=== PATIENT | female | born 1975 | race Caucasian/White ===

== ENCOUNTER → 2020-10-09 14:36 | Outpatient (BNVA) | payer MEDICAID, SELFPAY | PROVIDERS: PCP Internal Medicine; Visit Provider Surgery Vascular Surgery | DX: I83.12 Varicose veins of left lower extremity with inflammation (principal) | CPT/HCPCS: 99202 ==

== ENCOUNTER 2020-10-14 08:08 | Outpatient (REF) | payer MEDICAID, SELFPAY ==
--- NOTE | 2020-10-14 08:12 | US_ITS ---
EXAMINATION: RIGHT and LEFT LOWER EXTREMITY VENOUS ULTRASOUND (Reflux Exam) CLINICAL INDICATION: leg pain and varicose veins. COMPARISON: None. TECHNIQUE: Color flow triplex imaging and compression Doppler was performed to evaluate both the deep and the superficial systems bilaterally. To evaluate the superficial system, the examination was performed in the upright position. Color-flow Doppler ultrasound and compression ultrasound were utilized. In addition, maneuvers were utilized to demonstrate reflux. FINDINGS: 1. DEEP VENOUS ULTRASOUND OF THE RIGHT LOWER EXTREMITY: Respiratory variation, normal compression and augmented flow are noted in the right common femoral vein as well as the right popliteal vein and there is no evidence of deep venous thrombosis at these locations. There is no evidence of reflux in the deep system in either the common femoral vein or the popliteal vein. There is no evidence of a Godoy's cyst. 2. SUPERFICIAL ULTRASOUND WITH DOPPLER OF RIGHT LOWER EXTREMITY: The right great saphenous vein at the saphenofemoral junction measures 9 mm, at the mid thigh 4 mm, xbzqn-wyh-vltq 4 mm, eywlo-wmw-bqft 4 mm, at mid calf 3 mm and at the ankle measures 3 mm. There is a 1.5 second reflux in the greater saphenous vein at the mid thigh. The right small saphenous vein measures 3 mm and shows no reflux. There is a lateral accessory greater saphenous vein that measures 4 mm and does not demonstrate reflux. There are perforators in the calf that measure 2 to 3 mm and do not demonstrate reflux. There is a varicosity in the calf that measures 3 mm and does not demonstrate reflux. 3. DEEP VENOUS ULTRASOUND OF THE LEFT LOWER EXTREMITY: Respiratory variation, normal compression and augmented flow are noted in the left common femoral vein as well as the left popliteal vein and there is no evidence of deep venous thrombosis at these locations. There is no evidence of reflux in the deep system in either the common femoral vein or the popliteal vein. . There is no evidence of a Godoy's cyst. 4. SUPERFICIAL ULTRASOUND WITH DOPPLER OF LEFT LOWER EXTREMITY: Left great saphenous vein at the saphenofemoral junction measures 8 mm, at the mid thigh 4 mm, ubbke-rkh-lhhv 4 mm, yoznh-yiw-inwu 3 mm, at mid calf 3 mm and at the ankle measures 3 mm. There is 2.2 seconds reflux in the greater saphenous vein at the mid calf The left small saphenous vein measures 3-5 mm and shows no reflux. There is an accessory lateral greater saphenous vein that measures 3 mm and does not demonstrate reflux. There is a varicosity in the thigh that measures 3 mm and does not demonstrate reflux. US/US venous duplex LE BI IMPRESSION: 1. No evidence of reflux or thrombus in the common femoral veins or popliteal veins bilaterally. 2. Bilateral greater saphenous vein reflux measuring 1.5 seconds on the right at the mid thigh and 2.2 seconds on the left at the mid calf.
== END 2020-10-14 08:09 | disposition home or self-care (01) ==
LOC: HO.US 08:08
PROVIDERS: Visit Provider Surgery Vascular Surgery
DX: I83.12 Varicose veins of left lower extremity with inflammation (principal); I83.893 Varicose veins of bilateral lower extremities with other complications
CPT/HCPCS: 93970

== ENCOUNTER 2020-11-17 08:05 | Outpatient (REF) | payer MEDICAID, SELFPAY ==
[2020-11-17 11:06] LABS: HCG Quantitative < 2 mIU/mL; Thyroid Stimulating Hormone 1.28 uIU/mL (0.32-4.0)
[2020-11-18 09:16] LABS: BV Int Neg Control Negative (Negative); BV Int Pos Control Positive (Positive)
[2020-11-18 15:32] LABS: C. trachomatis RNA TMA NOT DETECTED (NOT DETECTED); N. gonorrhoeae RNA TMA NOT DETECTED (NOT DETECTED)
[2020-11-20 05:52] LABS: HPV 16 RNA NOT DETECTED (NOT DETECTED); HPV mRNA E6/E7 rflx Detected (Not Detected)
== END 2020-11-17 08:06 | disposition home or self-care (01) ==
LOC: HO.LAB 08:05
PROVIDERS: PCP Internal Medicine; Visit Provider Obstetrics & Gynecology
DX: R31.29 Other microscopic hematuria (principal); N83.299 Other ovarian cyst, unspecified side; N92.1 Excessive and frequent menstruation with irregular cycle; N84.1 Polyp of cervix uteri; N76.0 Acute vaginitis; B96.89 Other specified bacterial agents as the cause of diseases classified elsewhere; F17.210 Nicotine dependence, cigarettes, uncomplicated
CPT/HCPCS: 36415; 81002; 84443; 84702; 87086; 87480; 87491; 87510; 87591; 87624; 87625; 87660; 88141; 88142; 99202

== ENCOUNTER 2020-11-18 10:21 | Outpatient (REF) | payer MEDICAID, SELFPAY ==
--- NOTE | ~2020-11-18 | MM_ITS ---
EXAMINATION: MM SCREENING DIGITAL BREAST TOMOSYNTHESIS, BILATERAL CLINICAL INFORMATION: Screening. Asymptomatic. Prior remote mammography performed 12 years ago at unknown facility in [place]. The lifetime risk of breast cancer based on the Tyrer-Cuzick Model is 8%. COMPARISON: None (current study represents new baseline exam). TECHNIQUE: Digital breast tomosynthesis is performed in both the craniocaudal and mediolateral oblique views along with computer-aided detection (CAD). Synthesized 2D images are generated from the tomosynthesis. Additional exaggerated right CC view is provided. FINDINGS: The breasts are heterogeneously dense, which may obscure small masses (ACR BI-RADS breast composition Category c). The right breast has an oval mass with smooth margins posterior upper outer quadrant measuring approximately 1.7 x 1.2 cm. Patient will be recalled for ultrasound to further characterize. The remainder the breasts show no significant mass or architectural abnormality. There are no abnormal calcifications. The axilla and skin contours are unremarkable. MM/MM tomosynthesis screening BI IMPRESSION: 1. Right: Oval mass posterior upper outer quadrant 1.7 x 1.2 cm. 2. Left: No mammographic evidence of malignancy. ASSESSMENT: BI-RADS 0: Incomplete - Need Additional Imaging Evaluation RECOMMENDATION: 1. Targeted right breast ultrasound. 2. Radiology department staff will contact the patient for additional imaging. This patient's information was entered into a reminder system with a target due date for their next mammogram.
== END 2020-11-18 10:22 | disposition home or self-care (01) ==
LOC: HO.MAMMO 10:21
PROVIDERS: PCP Internal Medicine; Visit Provider Internal Medicine
DX: Z12.31 Encounter for screening mammogram for malignant neoplasm of breast (principal)
CPT/HCPCS: 77063; 77067

== ENCOUNTER 2020-11-24 15:27 | Outpatient (REF) | payer MEDICAID, SELFPAY ==
--- NOTE | ~2020-11-24 | US_ITS ---
EXAMINATION: PELVIC ULTRASOUND CLINICAL INFORMATION: Excessive and frequent menses COMPARISON: None TECHNIQUE: Transabdominal and transvaginal pelvic ultrasound was performed. Transvaginal exam was performed for better visualization of the uterus and ovaries. FINDINGS: The uterus is anteverted and measures 13 x 4.4 x 5.6 cm in dimension. There is a 1.3 x 1.1 x 1.6 cm hypoechoic lesion in the left uterine fundus suggestive of a fibroid. No other focal uterine lesion is seen. Endometrial thickness is normal measuring 0.5 cm. There are multiple nabothian cysts in the cervix. The right ovary is enlarged and measures 3.3 x 3.1 x 3.6 cm. There is a 3 x 2.8 x 2.6 cm complex right ovarian cyst with septations and internal echoes. The left ovary is normal-appearing and measures 3 x 1.7 x 3.3 cm. There is no fluid in the pelvis. US/US pelvic complete IMPRESSION: Small left fundal uterine fibroid. 3 x 2.8 x 2.6 cm complex right ovarian cyst. Follow-up pelvic ultrasound in 10-12 weeks following several menstrual cycles should be considered.
--- NOTE | ~2020-11-24 | US_ITS ---
EXAMINATION: PELVIC ULTRASOUND CLINICAL INFORMATION: Excessive and frequent menses COMPARISON: None TECHNIQUE: Transabdominal and transvaginal pelvic ultrasound was performed. Transvaginal exam was performed for better visualization of the uterus and ovaries. FINDINGS: The uterus is anteverted and measures 13 x 4.4 x 5.6 cm in dimension. There is a 1.3 x 1.1 x 1.6 cm hypoechoic lesion in the left uterine fundus suggestive of a fibroid. No other focal uterine lesion is seen. Endometrial thickness is normal measuring 0.5 cm. There are multiple nabothian cysts in the cervix. The right ovary is enlarged and measures 3.3 x 3.1 x 3.6 cm. There is a 3 x 2.8 x 2.6 cm complex right ovarian cyst with septations and internal echoes. The left ovary is normal-appearing and measures 3 x 1.7 x 3.3 cm. There is no fluid in the pelvis. US/US transvaginal IMPRESSION: Small left fundal uterine fibroid. 3 x 2.8 x 2.6 cm complex right ovarian cyst. Follow-up pelvic ultrasound in 10-12 weeks following several menstrual cycles should be considered.
== END 2020-11-24 15:28 | disposition home or self-care (01) ==
LOC: HO.HMGCX 15:27
PROVIDERS: PCP Internal Medicine; Visit Provider Obstetrics & Gynecology
DX: N92.1 Excessive and frequent menstruation with irregular cycle (principal)
CPT/HCPCS: 76830; 76856

== ENCOUNTER → 2020-11-27 15:05 | Outpatient (BNVA) | payer MEDICAID, SELFPAY | PROVIDERS: PCP Internal Medicine; Visit Provider Surgery Vascular Surgery | DX: I83.12 Varicose veins of left lower extremity with inflammation (principal); F17.200 Nicotine dependence, unspecified, uncomplicated; Z71.6 Tobacco abuse counseling | CPT/HCPCS: 99212 ==

== ENCOUNTER 2020-12-01 14:04 | Outpatient (REF) | payer MEDICAID, SELFPAY ==
--- NOTE | ~2020-12-01 | US_ITS ---
EXAMINATION: US DIAGNOSTIC ULTRASOUND BREAST, RIGHT CLINICAL INFORMATION: Recall from screening for oval mass posterior upper outer right breast. Remote prior outside mammography from [place] approximately 12 years ago at unknown facility and unavailable. COMPARISON: Mammography 11/18/2020, new baseline. TECHNIQUE: Ultrasound right breast is targeted to the upper outer quadrant. Grayscale imaging and color Doppler are performed without and with months. FINDINGS: There is a solid macrolobulated mass with smooth margins posterior upper outer right breast 10:00 position 10 cm from nipple measuring 1.9 x 1.6 x 1.1 cm. This corresponds to finding on mammography. No other cystic or solid mass in the targeted area. Results are discussed with the patient at time of visit, using an educational sign language interpreter. The finding most likely represents a fibroadenoma. Management options discussed with patient. Patient does not recall any finding right breast on remote prior outside mammography. Ultrasound-guided core biopsy is recommended to confirm fibroadenoma. US/US breast RT limited IMPRESSION: Solid mass posterior upper outer right breast 1.9 cm, likely fibroadenoma. ASSESSMENT: BI-RADS 4A: Low suspicion for malignancy RECOMMENDATION: Ultrasound-guided core biopsy right breast. This patient's information was entered into a reminder system with a target due date for their next mammogram.
[2020-12-02 06:47] LABS: CA-125 8 U/mL (<35)
== END 2020-12-01 14:05 | disposition home or self-care (01) ==
LOC: HO.MAMMO 14:04
PROVIDERS: PCP Internal Medicine; Visit Provider Obstetrics & Gynecology
DX: N84.1 Polyp of cervix uteri (principal); N92.1 Excessive and frequent menstruation with irregular cycle; N83.292 Other ovarian cyst, left side; N02.9 Recurrent and persistent hematuria with unspecified morphologic changes; R92.8 Other abnormal and inconclusive findings on diagnostic imaging of breast; F17.210 Nicotine dependence, cigarettes, uncomplicated
CPT/HCPCS: 36415; 76642; 81003; 86304; 99212

== ENCOUNTER → 2020-12-03 08:33 | Outpatient (BNVA) | payer MEDICAID, SELFPAY | PROVIDERS: Visit Provider Surgery | DX: N63.11 Unspecified lump in the right breast, upper outer quadrant (principal); E66.01 Morbid (severe) obesity due to excess calories | CPT/HCPCS: 99202 ==

== ENCOUNTER 2020-12-04 08:10 | Outpatient (REF) | payer MEDICAID, SELFPAY ==
--- NOTE | ~2020-12-04 | US_ITS ---
PROCEDURE: US GUIDED BREAST BIOPSY, RIGHT CLINICAL INFORMATION: Indeterminate solid mass 10 o'clock position, 10 cm from the nipple COMPARISON: 12/01/2020 and studies dating back to 11/18/2020 PROCEDURAL DETAILS: The details of the procedure, as well as the risks, benefits, and alternatives to the procedure were explained to the patient in detail and all of her questions were answered, after which written informed consent was obtained. Site and side were confirmed. Prior to the procedure, sonography revealed a well-circumscribed hypoechoic solid mass 10 o'clock position, 10 cm from nipple. A time-out was performed, the lesion intended for biopsy was targeted, and the skin of the right breast was then prepped and draped in the usual sterile fashion. Using sonographic guidance, sterile technique, and 1% lidocaine without epinephrine for local anesthesia, multiple automated core biopsies were obtained through the targeted area with a 14-gauge spring loaded Achieve core biopsy device. There was real-time confirmation of appropriate needle passage. Sampling was documented. At the completion of tissue sampling, a single butterfly-shaped metallic clip was deposited at the biopsy site. There was no evidence of immediate complication. SPECIMEN: An appropriate sample was obtained. DIGITAL POST-PROCEDURE MAMMOGRAPHY: Breast density: The tissue is heterogeneously dense which may obscure small masses. BI-RADS version 5, category C. There are no new mammographic findings demonstrated. The postprocedure 2-view direct digital mammogram reveals satisfactory positioning of the biopsy clip. The patient tolerated the procedure well and, after assuring adequate hemostasis, was discharged in good condition after reviewing postbiopsy breast care instructions. Final pathology results are pending. US/US breast ndl core biopsy RT IMPRESSION: 1. No immediate complication from ultrasound-guided percutaneous biopsy right breast. 2. Ultrasound was used to localize and guide marker clip placement. 3. The 2-view direct digital postprocedure mammogram reveals satisfactory positioning of the biopsy clip. 4. Final pathology results are pending. A separate report with final recommendations will be issued once these results are made available.
--- NOTE | ~2020-12-04 | MM_ITS ---
EXAMINATION: MM DIAGNOSTIC DIGITAL MAMMOGRAPHY, RIGHT CLINICAL INFORMATION: Post ultrasound-guided core biopsy COMPARISON: Mammography: December 01, 2020 and studies dating back to November 18, 2020 TECHNIQUE: Digital mammography is performed in craniocaudal, exaggerated craniocaudal, 90 degree mediolateral, and mediolateral oblique views. FINDINGS: DIGITAL POST-PROCEDURE MAMMOGRAPHY: Breast density: The tissue is heterogeneously dense which may obscure small masses. BI-RADS version 5, category C. There are no new mammographic findings demonstrated. The postprocedure 2-view direct digital mammogram reveals satisfactory positioning of the biopsy clip. The patient tolerated the procedure well and, after assuring adequate hemostasis, was discharged in good condition after reviewing postbiopsy breast care instructions. Final pathology results are pending. MM/MM diagnostic mammo unilat RT IMPRESSION: 1. No immediate complication from ultrasound-guided percutaneous biopsy right breast. 2. Ultrasound was used to localize and guide marker clip placement. 3. The 2-view direct digital postprocedure mammogram reveals satisfactory positioning of the biopsy clip. 4. Final pathology results are pending. A separate report with final recommendations will be issued once these results are made available.
== END 2020-12-04 08:11 | disposition home or self-care (01) ==
LOC: HO.MAMMO 08:10
PROVIDERS: Visit Provider Surgery
DX: N63.11 Unspecified lump in the right breast, upper outer quadrant (principal)
CPT/HCPCS: 19083; 77065; 88305; 88341; 88342

== ENCOUNTER → 2020-12-15 14:35 | Outpatient (BNVA) | payer MEDICAID, SELFPAY | PROVIDERS: PCP Internal Medicine; Visit Provider Surgery | CPT/HCPCS: 99212 ==

== ENCOUNTER 2020-12-18 14:04 | Outpatient (REF) | payer MEDICAID, SELFPAY ==
--- NOTE | ~2020-12-18 | CT_ITS ---
EXAMINATION: CT ABDOMEN AND PELVIS WITHOUT AND WITH CONTRAST CLINICAL INFORMATION: Microscopic hematuria. COMPARISON: None. TECHNIQUE: Noncontrast CT of the abdomen and pelvis is performed followed by split bolus contrast-enhanced images using 85 mL Omnipaque 350 contrast.? Postcontrast imaging is performed during the combined nephrogram and excretion phase. Sagittal and coronal reformatted images were obtained on the technologist's workstation for both the precontrast and postcontrast phases. This CT examination was performed using dose optimization techniques as appropriate, variously including the following: *Automated exposure control *Adjustment of mA and/or kV according to patient size (this includes techniques or standardized protocols for targeted exams where dose is matched to indication/reason for exam; i.e. extremities or head) *Use of iterative reconstruction technique DLP: 1232 mGy-cm FINDINGS: LUNG BASES: The lung bases are clear. The heart size is normal. LIVER, GALLBLADDER, AND BILIARY TREE: The liver is normal in size, shape, and attenuation. There is a 1 cm hypodensity in the right hepatic lobe image 29/8 probable cyst. No additional lesion seen. No intrahepatic ductal dilatation noted. The gallbladder is unremarkable with no evidence of radiopaque gallstones, gallbladder wall thickening, or obvious pericholecystic inflammatory changes. PANCREAS: Unremarkable. SPLEEN: Unremarkable. ADRENAL GLANDS: Unremarkable. KIDNEYS AND URETERS: There are no radiopaque renal calculi seen. Postcontrast both kidney nephrograms are symmetrical, normal size and shape. No focal lesion or enhancing solid mass seen. Right kidney measures 11.70 cm in length and left kidney measures 11.07 cm in length. There is bilateral contrast opacified pelvicalyceal system which appears normal. No hydroureteronephrosis seen. There is good opacification of both ureters which are normal caliber. BLADDER: Unremarkable. GASTROINTESTINAL TRACT: There is scattered stool seen throughout the colon without any significant distention. The small bowel loops are normal caliber. ABDOMINAL WALL: No significant hernia is appreciated. LYMPH NODES: 1 cm lymph nodes are seen in the left para-aortic region. VASCULAR: Unremarkable. PELVIC VISCERA: The uterus is anteverted and appears unremarkable. No adnexal mass or free fluid seen. OSSEUS STRUCTURES: There are degenerative disc changes with vacuum disc phenomena and posterior spondylosis. CT/CT urogram IMPRESSION: No radiopaque urolith, hydroureteronephrosis or enhancing lesions. Mild constipation. Small right hepatic cyst.
== END 2020-12-18 14:05 | disposition home or self-care (01) ==
LOC: HO.CT 14:04
PROVIDERS: PCP Internal Medicine; Visit Provider Obstetrics & Gynecology
DX: R31.29 Other microscopic hematuria (principal)
CPT/HCPCS: 74178; Q9967

== ENCOUNTER → 2020-12-30 15:20 | Outpatient (BNVA) | payer MEDICAID, SELFPAY | PROVIDERS: PCP Internal Medicine; Visit Provider Obstetrics & Gynecology | DX: N92.1 Excessive and frequent menstruation with irregular cycle (principal); N84.1 Polyp of cervix uteri | CPT/HCPCS: 99212 ==

== ENCOUNTER 2021-01-02 08:46 | Day surgery (SDC) | payer MEDICAID, SELFPAY ==
[2020-12-11 14:19] VITALS: BMI 78.5
--- NOTE | 2020-12-18 09:31 | HO.ANESPROP2 ---
HPI - Anesthesia Eval Consult details Narrative: 45yo F for D&C Diagnostic Hysteroscopy PMFSH Active Problems Active Problems: All Active Problems (Updated 12/15/20 @ 14:38 by Messi Jones MD) Fibroadenoma (Acute) Morbid obesity (Acute) Breast mass, right (Acute) HPV in female (Acute) Abnormal mammogram (Acute) Bacterial vaginosis (Acute) Endocervical polyp (Acute) Menometrorrhagia (Acute Unknown) Complex ovarian cyst (Acute) Microscopic hematuria (Acute) Varicose veins of left lower extremity with inflammation (Acute) Past Medical History Medical History (Updated 12/15/20 @ 14:38 by Messi Jones MD) Breast mass, right Fibroadenoma Morbid obesity Surgical History Surgical History History of Tubal ligation status Social History Social History Smoking Status: Current every day smoker Tobacco Type: Cigarette Meds Allergies Allergy/AdvReac Type Severity Reaction Status Date / Time No Known Allergies Allergy Verified 12/15/20 14:33 Exam Exam Date and Time: December 18, 2020 0931 Height,Weight and Vital Signs: Height 5 ft 3 in Weight 201 kg Assessment and Plan Assessment Anesthesia Assessment: Chart Reviewed
[2020-12-29 11:45] VITALS: BMI 35.6
[2020-12-29 12:58] VITALS: BMI 35.6
--- NOTE | 2021-01-01 08:52 | HO.ANESPROP2 ---
Documented by User: Vanita Jennings 01/01/21 08:52 HPI - Anesthesia Eval Consult details Narrative: 45yo F for D&C Hysteroscopy, Poss Polypectomy, Poss Myomectomy PMFSH Active Problems Active Problems: All Active Problems (Updated 12/29/20 @ 13:02 by Kaylynn Lorenzo) Varicose veins of left lower extremity with inflammation (Acute) Microscopic hematuria (Acute) Complex ovarian cyst (Acute) Menometrorrhagia (Acute Unknown) Endocervical polyp (Acute) Bacterial vaginosis (Acute) Abnormal mammogram (Acute) HPV in female (Acute) Fibroadenoma (Acute) Morbid obesity (Acute) Breast mass, right (Acute) Past Medical History Medical History Anxiety and depression Breast mass, right Fibroadenoma Morbid obesity Surgical History Surgical History History of Social History Social History Are you a primary childcare center administrator to a significant other at home: No Do you presently have visiting nurse or other home services: No Smoking Status: Current every day smoker Tobacco Type: Cigarette Cigarettes Per Day: 10 Use of substances other than those prescribed or required for medical reasons: No Advance Directives: No Advance Directives Information Provided: No Advance Directives on File: No Recently lost weight without trying: No Meds Allergies Allergy/AdvReac Type Severity Reaction Status Date / Time No Known Allergies Allergy Verified 12/30/20 15:27 Home Medications Medication Instructions Recorded Confirmed Last Taken Type No Known Home Meds 12/30/20 12/30/20 Unknown History Exam Exam Date and Time: January 01, 2021 0852 Height,Weight and Vital Signs: Height 5 ft 3 in Weight 91.172 kg Assessment and Plan Assessment Anesthesia Assessment: Chart Reviewed Documented by User: Evonne Knott 01/02/21 08:49 PMFSH Past Medical History Medical History Anxiety and depression Breast mass, right Fibroadenoma Morbid obesity Surgical History Surgical History History of Social History Social History Are you a primary childcare center administrator to a significant other at home: No Do you presently have visiting nurse or other home services: No Smoking Status: Current every day smoker Tobacco Type: Cigarette Cigarettes Per Day: 10 Use of substances other than those prescribed or required for medical reasons: No Advance Directives: No Advance Directives Information Provided: No Advance Directives on File: No Recently lost weight without trying: No Meds Allergies Allergy/AdvReac Type Severity Reaction Status Date / Time No Known Allergies Allergy Verified 12/30/20 15:27 Home Medications Medication Instructions Recorded Confirmed Last Taken Type No Known Home Meds 12/30/20 12/30/20 Unknown History Exam Airway Mallampati Class: II TM Dist: >3cm Neck ROM: Full Assessment and Plan Assessment Anesthesia Assessment: Anesthesia Plan Discussed and Chart Reviewed Final Anesthetic Review NPO: Yes ASA Class: II Final Preanesthetic Review: No Changes in Pt Med Stat, Meds/Allgs Chart Reviewed, Consent Obtained/Reviewed and Anes Risks/Benef Reviewed Patient Risk: Low Procedure Risk: Low Assessment/Block/Sedation in SS: Assess/Block/Sedation-SS Anesthetic Plan Anesthetic Plan: MAC: Disposition: Standard PACU
--- NOTE | 2021-01-02 06:15 | PC.NURSE ---
pt called at 615 sts she was cancelled by office
[2021-01-02 08:53] VITALS: RESP 18; TEMP 36.4
[2021-01-02 08:59] VITALS: BP 106/77; PULSE 74; RESP 18; TEMP 36.4; O2SAT 98
[2021-01-02 09:10] LABS: UPreg QC Valid YES; Urine Pregnancy NEGATIVE (NEGATIVE)
[2021-01-02] MEDS: Lactated Ringers 1,000 ML 100 ML IVCONT (09:11)
--- NOTE | 2021-01-02 09:25 | PC.NURSE ---
no meds taken today
--- NOTE | 2021-01-02 10:21 | MHC.SHP ---
Pre-Procedural Eval Section A The patient is an INPATIENT: No Changes since office visit: No Cold of Flu in the past 2 weeks, No New Medical Problems, No Changes in Medication and No Patient answered all questions The History & Physical has been completed within 30 days and I have reviewed it.: Yes Section B Chief Complaint: Endocervical polyp Allergies: Allergies Allergy/AdvReac Type Severity Reaction Status Date / Time No Known Allergies Allergy Verified 12/30/20 15:27 Plan Diagnosis/Plan: Unchanged I have reviewed the history and physical and performed a pertinent physical examination on my patient. No changes have occurred unless specified.
--- NOTE | 2021-01-02 11:00 | PM.OP ---
Brief Operative Note Date of Service: 01/02/21 Pre-op diagnosis: Abnormal endometriumby ultrasound Post-op diagnosis: other (Normal endo cervical and endometrial cavity) Procedure: Hysteroscopy D&C, Polypectomy Surgeon: Kyle Aguirre MD Anesthesia: MAC Estimated blood loss (mL): 0 Pathology: other (Endometrial Scrapping. Polyp) Condition: stable Disposition: PACU
--- NOTE | 2021-01-02 11:01 | P.OP_ITS ---
Operative Note Operative Note Date of Service: 01/02/21 Narrative: Preop Diagnosis: Abnormal endometrium by ultrasound Operation: Diagnostic Hysteroscopy, Dilataion & Curettage Post Op Diagnosis: normal endometrial and endocervical cavity no evidence of pathology QBL: Minimal Anesthesia: MAC Surgeon: Kyle Aguirre MD Manufacturing Engineering Director: None Complication: None Pathology: Endometrial Scrapings Procedure: The patient was put in the dorsal lithotomy position, scrubbed, and draped in the usual manner. A sterile speculum was inserted in the patient's vagina. The anterior lip of the cervix was grasped with a single tooth tenaculum. The cervix was dilated up to 5 mm, then the scope was inserted in the patient's uterus. Inspection revealed normal endocervical & endometrial cavity with no evidence of pathology. The scope was taken out of the uterine cavity , then sharp curetting was carried on with no complications. At the end of the procedure, all instruments were taken out of the patient uterine and vaginal cavity. The single tooth tenaculum was removed and homeostasis was assured using pressure. The patient tolerated the procedure well and was transferred to the PACU in a stable condition.
[2021-01-02 11:04] VITALS: BP 115/52; PULSE 69; RESP 16; TEMP 36.1; O2SAT 92
[2021-01-02 11:19] VITALS: BP 107/64; PULSE 65; RESP 18; O2SAT 95
[2021-01-02 11:34] VITALS: BP 129/72; PULSE 70; RESP 18; O2SAT 99
[2021-01-02] MEDS: Acetaminophen 325 MG TABLET 650 MG PO (11:34)
[2021-01-02] MEDS: oxyCODONE HCl Immed Release 5 MG TABLET PO (11:35)
== END 2021-01-02 12:32 ==
LOC: HO.SSS 08:47
PROVIDERS: Nurse Practitioner; PCP Internal Medicine; Visit Provider Obstetrics & Gynecology
PROC: 0UDB8ZZ Extraction of Endometrium, Via Natural or Artificial Opening Endoscopic (ICD-10-PCS; CPT 58558; principal; 2021-01-02 11:10)
DX: N84.1 Polyp of cervix uteri (principal); N83.299 Other ovarian cyst, unspecified side; N92.1 Excessive and frequent menstruation with irregular cycle; Z98.51 Tubal ligation status; F17.210 Nicotine dependence, cigarettes, uncomplicated
CPT/HCPCS: 58558; 81025; 88305; J1100; J1885; J2250; J2405; J3010

== ENCOUNTER → 2021-01-15 15:15 | Outpatient (BNVA) | payer MEDICAID, SELFPAY | PROVIDERS: PCP Internal Medicine; Visit Provider Obstetrics & Gynecology ==

== ENCOUNTER 2021-12-03 14:37 | Outpatient (REF) | payer MEDICAID, SELFPAY ==
[2021-12-06 05:26] LABS: HPV mRNA E6/E7 rflx Not Detected (Not Detected)
== END 2021-12-03 14:38 | disposition home or self-care (01) ==
LOC: HO.LAB 14:37
PROVIDERS: PCP Internal Medicine; Visit Provider Obstetrics & Gynecology
DX: Z01.419 Encounter for gynecological examination (general) (routine) without abnormal findings (principal); Z11.51 Encounter for screening for human papillomavirus (HPV)
CPT/HCPCS: 87624; 88142

== ENCOUNTER 2022-01-05 15:34 | Outpatient (REF) | payer MEDICAID, SELFPAY ==
--- NOTE | ~2022-01-05 | MM_ITS ---
EXAMINATION: MM SCREENING DIGITAL BREAST TOMOSYNTHESIS, BILATERAL CLINICAL INFORMATION: Screening. Asymptomatic. The lifetime risk of breast cancer based on the Tyrer-Cuzick Model is 7%. COMPARISON: Mammography: 12/04/2020, 11/18/2020 (new baseline); ultrasound right breast 12/01/2020, ultrasound-guided biopsy right breast 12/04/2020 (fibroadenoma). TECHNIQUE: Digital breast tomosynthesis is performed in both the craniocaudal and mediolateral oblique views along with computer-aided detection (CAD). Synthesized 2D images are generated from the tomosynthesis. FINDINGS: The breasts are heterogeneously dense, which may obscure small masses (ACR BI-RADS breast composition Category c). Parenchymal pattern is similar to new baseline exam. There is no interval mass or architectural abnormality or abnormal calcifications. There is stable mass posterior upper outer right breast with overlying biopsy clip marker consistent with the biopsy-proven fibroadenoma. The skin contours are smooth. No significant changes. MM/MM tomosynthesis screening BI IMPRESSION: No mammographic evidence of malignancy. ASSESSMENT: BI-RADS 2: Benign RECOMMENDATION: Routine annual mammography screening. This patient's information was entered into a reminder system with a target due date for their next mammogram.
== END 2022-01-05 15:35 | disposition home or self-care (01) ==
LOC: HO.MAMMO 15:34
PROVIDERS: Visit Provider Obstetrics & Gynecology
DX: Z12.31 Encounter for screening mammogram for malignant neoplasm of breast (principal)
CPT/HCPCS: 77063; 77067

== ENCOUNTER 2023-03-14 09:02 | Outpatient (REF) | payer MEDICAID, SELFPAY ==
[2023-03-17 22:10] LABS: HPV mRNA E6/E7 rflx Not Detected (Not Detected)
== END 2023-03-14 09:03 | disposition home or self-care (01) ==
LOC: HO.LNP 09:02
PROVIDERS: PCP Internal Medicine; Visit Provider Obstetrics & Gynecology
DX: Z01.419 Encounter for gynecological examination (general) (routine) without abnormal findings (principal); Z11.51 Encounter for screening for human papillomavirus (HPV)
CPT/HCPCS: 87624; 88142

== ENCOUNTER 2023-03-14 09:32 | Outpatient (REF) | payer MEDICAID, SELFPAY ==
[2023-03-15 07:46] LABS: CT PCR NOT DETECTED (Not Detect.); NG PCR NOT DETECTED (Not Detect.)
[2023-03-15 11:18] LABS: BV Int Neg Control Negative (Negative); BV Int Pos Control Positive (Positive)
== END 2023-03-14 09:33 | disposition home or self-care (01) ==
LOC: HO.LAB 09:32
PROVIDERS: Visit Provider Obstetrics & Gynecology
DX: Z20.2 Contact with and (suspected) exposure to infections with a predominantly sexual mode of transmission (principal); N76.0 Acute vaginitis; B96.89 Other specified bacterial agents as the cause of diseases classified elsewhere
CPT/HCPCS: 0353U; 87480; 87510; 87660

== ENCOUNTER 2023-04-21 10:21 | Outpatient (REF) | payer MEDICAID, SELFPAY ==
--- NOTE | ~2023-04-21 | XR_ITS ---
EXAMINATION: XR PELVIS, HIP LEFT CLINICAL INFORMATION: Left hip pain status post fall 4 days ago. COMPARISON: CT urogram dated 12/18/2020. TECHNIQUE: AP view of the pelvis. FINDINGS: There is no acute fracture or dislocation. The joint spaces are unremarkable. Mild degenerative spurring off of the superior margin of the greater trochanter is again seen without significant change. The soft tissues are unremarkable. XR/XR pelvis 1-2V IMPRESSION: No acute fracture or other significant abnormality.
--- NOTE | ~2023-04-21 | XR_ITS ---
EXAMINATION: XR PELVIS, HIP LEFT CLINICAL INFORMATION: Left hip pain status post fall 4 days ago. COMPARISON: CT urogram dated 12/18/2020. TECHNIQUE: AP view of the pelvis. FINDINGS: There is no acute fracture or dislocation. The joint spaces are unremarkable. Mild degenerative spurring off of the superior margin of the greater trochanter is again seen without significant change. The soft tissues are unremarkable. XR/XR hip LT min 2V IMPRESSION: No acute fracture or other significant abnormality.
== END 2023-04-21 10:22 | disposition home or self-care (01) ==
LOC: HO.HHCX 10:21
PROVIDERS: Visit Provider Emergency Medicine
DX: S39.92XD Unspecified injury of lower back, subsequent encounter (principal); S79.912D Unspecified injury of left hip, subsequent encounter; X58.XXXD Exposure to other specified factors, subsequent encounter
CPT/HCPCS: 72170; 73502

== ENCOUNTER 2023-07-25 14:27 | Outpatient (REF) | payer MEDICAID, SELFPAY ==
--- NOTE | ~2023-07-25 | MM_ITS ---
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 Patient also due for bilateral screening. COMPARISON: Mammography: 01/05/2022. 11/18/2020. TECHNIQUE: Digital breast tomosynthesis is performed in both the craniocaudal and mediolateral oblique views along with computer-aided detection (CAD). Synthesized 2D images are generated from the tomosynthesis. FINDINGS: The breasts are heterogeneously dense, which may obscure small masses (ACR BI-RADS breast composition Category c). There is a stable lobular mass in the right breast axillary tail region with a peripheral biopsy clip, corresponding with the known previously biopsied fibroadenoma. Otherwise, there is no evidence of developing mass, suspicious grouped calcifications, or areas of architectural distortion in either breast. No mammographic abnormality other than the biopsied benign mass is present in the right upper outer quadrant. ULTRASOUND: CLINICAL INFORMATION: Patient complaining of breast pain upper outer quadrant right breast in the region of old benign biopsy of fibroadenoma. COMPARISON: 12/01/2020. 12/04/2020. TECHNIQUE: Targeted sonographic evaluation was performed using a high frequency linear transducer. Attention was given to the right upper outer quadrant in the region of breast pain. Selected archived documentation. FINDINGS: RIGHT BREAST: There is a mixture of fatty and fibroglandular tissue. There is a stable oval mass present measuring 1.1 x 1.1 x 0.9 cm, with a peripheral placed biopsy clip present, consistent with the known biopsied fibroadenoma. No additional masses are seen. There is no pathologic acoustic shadowing. There is no axillary adenopathy. MM/MM tomosynthesis diagnostic BI IMPRESSION: No mammographic evidence of malignancy in either breast. In the upper outer quadrant of the right breast, only the previously biopsied 1.1 cm fibroadenoma is noted. No additional cause for right upper quadrant breast pain is evident. Recommend clinical management for the complaint of breast pain. Otherwise, recommend resuming routine mammographic screening. OVERALL ASSESSMENT: Mammography: BI-RADS 2 - Benign Findings Ultrasound: BI-RADS 2 - Benign Findings RECOMMENDATION: 1. Patient should be managed based on the clinical symptomatology. 2. Otherwise, routine annual screening mammography. Results were provided to the patient at time of visit by the technologist. This patient's information was entered into a reminder system with a target due date for their next mammogram.
== END 2023-07-25 14:28 | disposition home or self-care (01) ==
LOC: HO.MAMMO 14:27
PROVIDERS: PCP Internal Medicine; Visit Provider Obstetrics & Gynecology
DX: N64.4 Mastodynia (principal)
CPT/HCPCS: 76642; 77062; 77066

== ENCOUNTER → 2023-07-25 15:00 | Outpatient (BNV) | payer MEDICAID, SELFPAY | PROVIDERS: PCP Internal Medicine; Visit Provider Radiology Diagnostic Radiology | DX: N64.4 Mastodynia (principal) | CPT/HCPCS: 76642; 77062; 77066 ==

== ENCOUNTER 2023-12-14 11:29 | Outpatient (REF) | payer MEDICAID, SELFPAY ==
[2023-12-14 13:27] LABS: MANUAL DIFF FLAG NO
[2023-12-14 13:32] LABS: Basophils Percent Auto 0.6 % (0-2); Eosinophils Absolute Auto 0.1 X10*3/uL (0.0-0.4); Hematocrit 40.6 % (37.0-47.0); Hemoglobin 13.3 g/dl (12.0-16.0); Imm Gran Abs Auto 0.01 X10*3/uL (0.00-0.03); Imm Gran Pct Auto 0.2 % (0.0-0.4); Lymphocytes Absolute Auto 2.5 X10*3/uL (1.2-4.9); Lymphocytes Percent Auto 38.1 % (20-40); Mean Corpuscular HGB Conc 32.8 g/dl (31.0-35.0); Mean Corpuscular Hemoglobin 29.6 pg (27.0-33.0); Mean Corpuscular Volume 90.2 fL (80.0-98.0); Mean Platelet Volume 11.3 fL (9.4-12.3); Monocytes Absolute Auto 0.5 X10*3/uL (0.1-1.2); Monocytes Percent Auto 7.1 % (2-11); Neutrophils Absolute Auto 3.4 x10*3/uL (2.0-8.3); Platelet Count 287 X10*3/uL (160-400); Red Cell Distribution Width 12.5 % (11.0-16.0); White Blood Count 6.5 X10*3/uL (4.8-10.8)
[2023-12-14 13:51] LABS: Alanine Aminotransferase 19 U/L (0-31); Albumin Level 4.4 g/dL (3.5-5.0); Alkaline Phosphatase 87 U/L (39-117); Anion Gap 11 (12-20); Aspartate Amino Transferase 19 U/L (5-31); Bilirubin Total 0.5 mg/dL (0.0-1.0); Blood Urea Nitrogen 9 mg/dL (9-16); C Reactive Protein 0.58 mg/dL (< or = 0.50); Calcium 9.3 mg/dL (8.4-10.2); Carbon Dioxide 29 mmol/L (22-29); Chloride 106 mmol/L (96-108); Estimated Glomerular Filt Rate > 60; Glucose Random 77 mg/dL (60-115); Potassium 4.2 mmol/L (3.3-5.1); Sodium 142 mmol/L (135-145); Total Protein 7.3 g/dL (6.5-8.0)
[2023-12-14 14:06] LABS: Erythrocyte Sedimentation Rate 13 MM/HR (0-20)
[2023-12-16 19:28] LABS: C. trachomatis RNA TMA NOT DETECTED (NOT DETECTED); Candida glabrata RNA DETECTED (NOT DETECTED); Candida species RNA NOT DETECTED (NOT DETECTED); N. gonorrhoeae RNA TMA NOT DETECTED (NOT DETECTED); Trichomonas vaginalis RNA NOT DETECTED (NOT DETECTED)
== END 2023-12-14 11:30 | disposition home or self-care (01) ==
LOC: HO.HHCL 11:29
PROVIDERS: Visit Provider Nurse Practitioner Family
DX: R10.32 Left lower quadrant pain (principal); N89.8 Other specified noninflammatory disorders of vagina
CPT/HCPCS: 36415; 80053; 81513; 85025; 85652; 86140; 87481; 87491; 87591; 87661

== ENCOUNTER 2023-12-16 13:23 | Outpatient (REF) | payer MEDICAID, SELFPAY | END 2023-12-16 13:24 | disposition home or self-care (01) | LOC: HO.HHCLNP 13:23 | PROVIDERS: Visit Provider Nurse Practitioner Family | DX: Z12.11 Encounter for screening for malignant neoplasm of colon (principal) | CPT/HCPCS: 36415 ==

== ENCOUNTER 2024-02-29 11:46 | Outpatient (REF) | payer MEDICAID, SELFPAY ==
[2024-02-29 14:59] LABS: HBsAGNum1 0.26 S/CO (0.00-0.99); HIV AB/AG Nonreactive (Nonreactive); HIV Num 1 0.05 S/CO (0.00-0.99); Hepatitis B Surface Antigen Negative (Negative); ~HepC Num1 0.06 S/CO (0.00-0.79); ~Hepatitis C Antibody Nonreactive (Nonreactive)
[2024-02-29 14:59] LABS: Syphilis Screen Reactive (Nonreactive)
[2024-03-06 11:12] LABS: RPR Quantitative Non-Reactive (Nonreactive)
[2024-03-06 11:13] LABS: T.Pallidum Particle Agg Test Reactive (Nonreactive)
== END 2024-02-29 11:47 | disposition home or self-care (01) ==
LOC: HO.HHCL 11:46
PROVIDERS: Visit Provider Obstetrics & Gynecology
DX: N76.0 Acute vaginitis (principal); B96.89 Other specified bacterial agents as the cause of diseases classified elsewhere; R10.32 Left lower quadrant pain
CPT/HCPCS: 36415; 86592; 86780; 86803; 87340; 87389

== ENCOUNTER → 2024-03-06 13:08 | Outpatient (BNVA) | payer SELFPAY | PROVIDERS: PCP Internal Medicine; Visit Provider Obstetrics & Gynecology ==

== ENCOUNTER → 2024-03-07 09:30 | Outpatient (BNVA) | payer SELFPAY | PROVIDERS: PCP Internal Medicine; Visit Provider Obstetrics & Gynecology ==

== ENCOUNTER 2024-04-06 11:18 | Outpatient (REF) | payer OTHER, SELFPAY ==
[2024-04-06 12:56] LABS: Estimated Average Glucose 108 mg/dL; Hemoglobin A1c % 5.4 % (<6.0)
[2024-04-06 13:17] LABS: Cholesterol 169 mg/dL (<200); HDL Cholesterol 57 mg/dL (>40); LDL Cholesterol Calculated 100 mg/dL (<100); Triglycerides 62 mg/dL (<150)
[2024-04-06 13:32] LABS: TSH reflex Free T4 1.89 uIU/mL (0.32-4.0)
[2024-04-06 14:43] LABS: CT PCR NOT DETECTED (Not Detect.); NG PCR NOT DETECTED (Not Detect.)
[2024-04-09 04:54] LABS: Syphilis Screen Reactive (Nonreactive)
[2024-04-09 05:19] LABS: ~HepC Num1 0.06 S/CO (0.00-0.79); ~Hepatitis C Antibody Nonreactive (Nonreactive)
[2024-04-10 01:13] LABS: RPR Rapid Plasma Reagin NON-REACTIVE (NON-REACTIVE)
[2024-04-11 07:30] LABS: HIV RNA PCR Qn Copies Not Detected Copies/mL; HIV RNA PCR Qn Log Copies Not Detected Log cps/mL
[2024-04-13 13:47] LABS: RPR Quantitative Reactive 1:1 (Nonreactive)
[2024-04-13 13:48] LABS: T.Pallidum Particle Agg Test Reactive (Nonreactive)
== END 2024-04-06 11:19 | disposition home or self-care (01) ==
LOC: HO.LAB 11:18
PROVIDERS: Absent Provider Obstetrics & Gynecology; PCP Internal Medicine; Visit Provider Internal Medicine
DX: Z00.00 Encounter for general adult medical examination without abnormal findings (principal); Z11.4 Encounter for screening for human immunodeficiency virus [HIV]; A53.9 Syphilis, unspecified
CPT/HCPCS: 36415; 80061; 83036; 84443; 86592; 86780; 86803; 87491; 87536; 87591; 87900

== ENCOUNTER 2024-04-10 10:00 | Outpatient (AMB) | payer OTHER, SELFPAY ==
--- NOTE | 2024-04-10 10:01 | MHC.OFFVIS ---
Intake Visit Reasons: labs results Allergies No Known Allergies Allergy (Verified 03/06/24 13:10) HPI Comments Details: The patient is scheduled tele health visit after troponin pallidum antibody EIA was reactive, other tests are still pending. The patient colpo of months ago had a positive troponin, pallidum antibody EIA reactive followed by negative RPR and reactive treponema pallidum particle agglutination test. History of syphilis PFSH Medical History Anxiety and depression Fibroadenoma Morbid obesity Breast mass, right HPV in female Surgical History Hx of dilation and curettage History of Social History Are you a primary care coordination manager to a significant other at home: No Do you presently have visiting nurse or other home services: No Alcohol intake: current Alcohol intake frequency: holidays/special occasions only Patient Tobacco Use Status: Current everyday Tobacco user Cigarettes Per Day: 10 Sexual orientation: Straight/Heterosexual Gender identity: Female Female Reproductive History Menstrual Age of Menarche: 7 Review of Systems Const All systems reviewed & are unremarkable except as noted in HPI and below Reports as per HPI and Reports no additional complaints GI Reports no additional complaints Reports no additional complaints Telehealth Telehealth Telehealth Platform: Telephone Location of provider rendering services: practice address Location of patient: address on file Patient Identification confirmed using: Name, : Yes Telehealth method: voice only Patient verbally consented to treatment: Yes Patient verbally consented to billing insurance company: Yes Patient informed of any privacy concerns related to visit: Yes Assessment & Plan Assessment & Plan (1) 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 All questions answered, the patient verbalized understanding. I spent a total of 20 minutes reviewing the chart, talking to the patient via phone and documenting in the medical record. 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
== END 2024-04-10 12:29 | disposition home or self-care (01) ==
LOC: HO.HWS 10:01
PROVIDERS: PCP Internal Medicine; Visit Provider Obstetrics & Gynecology
DX: A53.9 Syphilis, unspecified (principal)

== ENCOUNTER → 2024-04-10 10:00 | Outpatient (BNVA) | payer OTHER, SELFPAY | PROVIDERS: PCP Internal Medicine; Visit Provider Obstetrics & Gynecology | DX: A53.9 Syphilis, unspecified (principal) | CPT/HCPCS: 99211 ==

== ENCOUNTER 2024-10-31 15:14 | Outpatient (REF) | payer OTHER, SELFPAY ==
--- OUTSIDE RECORDS SUMMARY | 2024-10-31 16:36 | XMS_ITS | Clinical Summary ---
Author Organization [facility] Address [address] [place] [address] Care Team Providers Care Braider Tender Name Role Phone Unavailable Primary Care Provider Unavailabl e Source Comments PLEASE NOTE, if this patient is a minor, it may be UNLAWFUL to discuss sensitive information that is contained in these records (such as FAMILY PLANNING, MENTAL HEALTH or SUBSTANCE ABUSE) with the minor patient's parent or other person without the patient's specific authorization.[facility] Medications ibuprofen 600 mg tabletIndicatio ns:Tooth pain Take 1 Tab by mouth 4 (four) times daily as needed for pain 28 Tab 0 Active ibuprofen 600 mg tablet Take 1 Tab by mouth 4 (four) times daily as needed for pain 20 Tab 0 Active fluoride, sodium, (DENTAGEL) 1.1 % gelIndications: [place] in mouth once daily [place] twice daily. Expectorate after use. Do not rinse, eat or drink for 30 minutes after use. 56 g 3 0 Active Immunizations Name Administration Dates Next Due Moderna COVID-19 Vaccine, re d cap blue label, 12+ Primary Series 03/24/2021,02/24/2021 Social History Tobacco Use Types Packs/Day Years Used Date Smoking Tobacco: Never Assessed Social Connections Answer Date Recorded Social Connections and Isolation 0 02/24/2021 Financial Resource Strain Answer Date R ecorded Financial Resource Strain 0 2020 Stress Answer Date Recorded Stress 0 02/24/2021 Physical Activity Answer Date Recorded Physical Activity 0 02/24/2021 Food Insecurity Answer Date Recorded Food 0 02/24/2021 Transportation Needs Answer Date Record ed Transportation 0 02/24/2021 Housing Stability Answer Date Recorded Housing 0 02/24/2021 Safety and Environment Answer Date Polo rded Safety 0 02/24/2021 Utilities Answer Date Recorded Utilities 0 02/24/2021 Employment Answer Date Recorded Employment 0 02/24/2021 Comments Unknown Sex and Gender Information Value Date Recorded Sex Assigned at Not on file Legal Sex Female 1:03 PM PST Gender Identity Not on file Sexual Orientation Not on file Plan of Treatment Health Maintenance Due Date Last Done Comments Diabetes Screening 1973 HPV Screening 1973 Hepatitis C Screening 1973 Lipid Screening 1973 Pap + HPV 1973 Tobacco Screening 1973 HIV Screening 01/31/1988 Annual Preventive Care Visit 1991 Hypertension Screening (#1) 1991 Imm-DTaP/Tdap/Td (1 - Tdap) 01/31/1992 Imm-Hepatitis B (1 of 3 - 19 + 3-dose series) 01/31/1992 Cervical Cancer Screening 1994 Pap Smear 1994 Breast Cancer Screening (Mammogram) 2013 CT Colonography 2018 Colonoscopy 2018 Colorectal Cancer Screening 2018 FIT/gFOBT 2018 Fecal DNA 2018 Flexible Sigmoidoscopy 2018 Imm-Zoster, Recombinant (1 of 2) 2023 Alcohol and Drug Screen 09/26/2023 Depression Annual Screen 09/26/2023 Ith-GYQDC-46 ( season) 2024 021, 02/24/2021 Imm-Influenza (#1) 2024 08/20/2020 Cervical Ablation/Cold-Knife Conization Discontinued Cervical Cryotherapy Discontinued Colposcopy Discontinued Endometrial Biopsy Discontinued Excision/Leep Discontinued HPV Genotyping Discontinued Vaginal Pap Discontinued Vulvoscopy Discontinued Insurance [place] DENTAL [facility] DENT[facility] [address] [place]
--- OUTSIDE RECORDS SUMMARY | 2024-10-31 16:36 | XMS_ITS | Encounter Summary ---
Author Organization [facility] Address [address] [place] [address] Care Team Providers Care Program Review Director Name Role Phone Valentina Lopez MD Primary Care Provide r Encounter Details Date Type Department Care Team (Late st Contact Info) Description 06/20/2023 Orders Only [facility] [address] [place] [address] Provider, Misael, Social History Tobacco Use Types Packs/Day Years Used Date Smoking Tobacco: Every Day Cigarettes Passive Smoke Exposure: Current Smokeless Tobacco: Never Depression Answer Date Recorded Patient Health Questionnaire-9 Score 3 02/28/2023 Depression Answer Date Recorded Patient Health Questionnaire-2 Score 0 02/28/2023 Comments Unknown Sex and Gender Information Value Date Recorded Sex Assigned at Female 07/26/2022 10:34 AM EDT Legal Sex Female 10:34 AM EDT Gender Identity Female 07/26/2022 10:34 AM EDT Sexual Orientation Straight 07/26/2022 10 :34 AM EDT documented as of this encounter Plan of Treatment Not on file documented as of this encounter Procedures Procedure Name Priority Date/Time Associated Diagnosis Comments HM PAP/HPV Routine 12/03/2021 HM PAP/HPV Routine 11/15/2020 documented in this encounter Results * Hm Pap Smear (12/03/2021) Historical Provider HEALTH MAINTENANCE Final Result * Hm Pap Smear (11/15/2020) Historical Provider HEALTH MAINTENANCE Final Result documented in this encounter Visit Diagnoses Not on filedocumented in this encounter Additional Health Concerns Assessment Noted Time PHQ-9 Depression Total Score: 3 02/29/20 23 10:36 AM EDT documented as of this encounter Care Teams Program Review Director Relationship Specialty Start Date End Date Valentina Lopez MD [address] [place] [address] PCP - General Family Medicine 08/03/18 documented as of this encounter
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
--- OUTSIDE RECORDS SUMMARY | 2024-10-31 16:36 | XMS_ITS | Clinical Summary ---
Author Organization [facility] Address [address] [place] [address] Phone Care Team Providers Care Purification Operator Helper Name Role Phone [facility] Primary Care Provider [phone] [facility] Unavailable [phone] Reason for Visit and Chief Complaint Established Patient Plan of Treatment No Plan of Treatment Recorded Assessments Includes: Assessments from this encounter No [...] from this encounter No Physical Exam Recorded Insurance Includes: Active Insurance Policies Plan Name Member ID Group # Subscriber Relationship Effect jeferson Dates 1 - [facility] [id number] Leela Piña Self Clinical Notes Includes: Clinical Notes from this encounter No Clinical Notes Recorded
--- OUTSIDE RECORDS SUMMARY | 2024-10-31 16:36 | XMS_ITS | Clinical Summary ---
Author Organization [facility] Address [address] [place] [address] Care Team Providers Care Back Tender Fourdrinier Name Role Phone Unavailable Primary Care Provider Unavailabl e Social History Tobacco Use Types Packs/Day Years Used Date Smoking Tobacco: Never Assessed Sex and Gender Information Value Date Recorded Sex Assigned at Not on file Gender Identity Not on file Sexual Orientation Not on file Plan of Treatment Health Maintenance Due Date Last Done Comments Breast Cancer Screening 1973 DTaP,Tdap,and Td Vaccines (1 - Tdap) 01/31/1992 Hepatitis B Vaccines (1 of 3 - 19+ 3-dose series) 01/31/1992 Cervical Cancer Screening: P ap Smear 1994 Colorectal Cancer Screening: Colonoscopy 08/25/2022 Depression Screening 08/25/2022 HIV Screening 08/25/2022 Hepatitis C Screening 08/25/2022 Social Influencers of Health Screening 08/25/2022 Zoster Vaccines (1 of 2) 2023 COVID-19 Vaccine ( - 2023-2 5 season) 2024 Influenza Vaccine (#1) 2024 HIB Vaccines Aged Out No longer eligi ble based on patient's age to complete this topic HPV Vaccines Aged Out No longer eligi ble based on patient's age to complete this topic Hepatitis A Vaccines Aged Out No long er eligible based on patient's age to complete this topic IPV Vaccines Aged Out No longer eligi ble based on patient's age to complete this topic MMR Vaccines Aged Out No longer eligi ble based on patient's age to complete this topic Meningococcal ACWY Vaccine Aged Out N o longer eligible based on patient's age to complete this topic Pneumococcal Vaccine: Pediat rics (0 to 5 Years) and At-Risk Patients (6 to 64 Years) Aged Out No longer eligible b ased on patient's age to complete this topic RSV Immunization Patients Un yane 20 months Aged Out No longer eligible b ased on patient's age to complete this topic Varicella Vaccines Aged Out No longer eligible based on patient's age to complete this topic
--- OUTSIDE RECORDS SUMMARY | 2024-10-31 16:36 | XMS_ITS | Clinical Summary ---
Author Organization [employer] Address [address] [place] [address] Care Team Providers Care Switch Coupler Name Role Phone Valentina Lopez MD Primary Care Provide r Allergies No known active allergies Medications nicotine polacrilex (Commit) 4 MG lozenge Dissolve 1 lozenge (4 mg) in the mouth every 2 (two) hours if needed for smoking cessation. 100 lozenge 4 Active nicotine (Nicoderm CQ) 14 MG/24HR patch Place 1 patch on the skin 1 (one) time each day at the same time. 42 patch 4 Active nicotine (Nicoderm CQ) 7 MG/24HR patch Place 1 patch on the skin 1 (one) time each day at the same time. 14 patch 4 Active Nirmatrelvir&Rit onavir 300/100 (Paxlovid, 300/100,) 20 x 150 MG & 10 x 100MG tablet therapy pack Take 300 mg by mouth 2 times daily. Take 3 tablets 2x/day for 5 days 30 each 4 Active acetaminophen (Tylenol) 500 MG tablet Take 2 tablets (1,000 mg) by mouth every 6 (six) hours if needed for moderate pain or fever for up to 25 doses. 30 tablet 4 Active ibuprofen 400 MG tablet Take 1 tablet (400 mg) by mouth every 6 (six) hours if needed for moderate pain or fever for up to 30 doses. 30 tablet 4 Active acetaminophen (Tylenol) 500 MG tablet Take 2 tablets (1,000 mg) by mouth every 6 (six) hours if needed for moderate pain or fever for up to 25 doses. 50 tablet 4 Active ibuprofen 400 MG tablet Take 1 tablet (400 mg) by mouth every 6 (six) hours if needed for moderate pain or fever for up to 30 doses. 30 tablet 4 Active phentermine 15 MG capsuleIndicatio ns:Class 1 obesity due to excess calories without serious comorbidity with body mass index (BMI) of 34.0 to 34.9 in adult Take 1 capsule (15 mg) by mouth before breakfast. 30 capsule 4 Active famotidine (Pepcid) 20 MG tabletIndication s:Left lower quadrant pain Take 1 tablet (20 mg) by mouth 2 times daily. 60 tablet 1 4 04/11/20 25 Active Active Problems Problem Noted Date Diagnosed Date Urinary frequency 04/11/2024 Assessment & Plan (04/11/2024 10:23 AM EDT): Labs ordered patient to be contacted with results Other constipation 02/29/2024 Assessment & Plan (04/11/2024 10:23 AM EDT): Advise more water and fiber on diet Medications as prescribed Assessment & Plan (02/29/2024 2:02 PM EDT): Diet modification counseling done Medications as above GI referral Class 1 obesity without seri ous comorbidity with body mass index (BMI) of 34.0 to 34.9 in adult 02/29/2024 Assessment & Plan (02/29/2024 2:03 PM EDT): Today extensive discussion was done about life style modifications I advise healthy diet (low calorie) and cardiovascular exercise I will prescribe phentermine 15mg daily today RTC 2 weeks Chronic low back pain 02/28/2024 Obesity (BMI 35.0-39.9 without comorbidity) 11/25 Assessment & Plan (12/28/2023 5:39 PM EDT): Reviewed increasing activity Left lower quadrant pain 12/14/2023 Assessment & Plan (04/11/2024 10:22 AM EDT): Do not miss GI appointment Medications as prescribed RTC 6 weeks Assessment & Plan (02/29/2024 2:02 PM EDT): I advise patient to avoid NSAIDs, spicy and acid food, I advise to eat at the same time every day, I advise to elevate the head of the bed and take medications as prescribe Famotidine prescribed today Colace and miralax Referral to GI she needs anyway her colonoscopy Assessment & Plan (12/28/2023 5:39 PM EDT): Suspect functional constipation based on history, add fiber, Due to intermittent but ongoing llq pain, ultrasound ordered Screening for colon cancer 12/14/2023 Assessment & Plan (12/28/2023 5:40 PM EDT): IFOBT ordered, referral to GI for colonoscopy Anxiety 12/13/2023 Gastroesophageal reflux disease 04/06/2023 Bilateral carpal tunnel syndrome 04/05/2023 Assessment & Plan (04/05/2023 12:36 PM EDT): I will generate prescription for bilateral wrist braces Fall due to wet surface 04/05/2023 Assessment & Plan (04/05/2023 12:37 PM EDT): Walk in appointment will be set up for patient Encounter for preventive health examination 01/2023 Assessment & Plan (02/29/2024 2:03 PM EDT): See HPI Polyarthralgia 02/28/2023 Assessment & Plan (04/05/2023 12:36 PM EDT): Continue with acetaminophen PRN Chronic bilateral low back pain with bilateral s ciatica 02/28/2023 Vaginal discharge 02/28/2023 Assessment & Plan (12/28/2023 5:39 PM EDT): Sure swab sent Tobacco dependence 02/28/2023 Assessment & Plan (12/28/2023 5:40 PM EDT): Actively cutting down, declines further assistance today Assessment & Plan (04/05/2023 12:36 PM EDT): Patient did not like nicotine gm I will switch her t nicotine patch Encounter for screening mamm ogram for malignant neoplasm of breast 02/28/2023 Immunizations Name Administration Dates Next Due Hep B, adult 11/23/2016,02/05/2016,07/18/2015 Influenza injectable quadriv alent preservative free 08/20/2020 Influenza, IIV3, injectable 08/03/2010 MMR 07/22/2015 Td (adult), unspecified 08/31/2010 Tdap 02/28/2023 Zoster, Recombinant 02/28/2023 Family History Medical History Relation Name Comments Diabetes Mother Hypertension Mother Relation Name Status Comments Mother Social History Tobacco Use Types Packs/Day Years Used Date Smoking Tobacco: Every Day Cigarettes Passive Smoke Exposure: Current Smokeless Tobacco: Never Tobacco Cessation:Ready to Q uit: Not Asked; Counseling Given: Not Answered Depression Answer Date Recorded Patient Health Questionnaire-9 Score 3 02/28/2023 Housing Stability Answer Date Recorded What is your housing situation today? I have loreta leung 07/15/[address] you li ve. Do you have problems with any of the following? None of the above 07/15/2023 Food Insecurity Answer Date Recorded Within the past 12 months, y ou worried that your food would run out before you got money to buy more: Never True 07/15/2023 Within the past 12 months,th e food you bought just didn't last and you didn't have enough money to get more: Never True Transportation Answer Date Recorded In the past 12 months, has l ack of transportation kept you from medical appts, meetings, work or from getting things needed for daily living? No 07/15/2023 Utilities Answer Date Recorded In the past 12 months, has t he electric, gas, oil or water company threatened to shut off services in your home? No 07/15/2023 Depression Answer Date Recorded Patient Health Questionnaire-2 Score 0 02/28/2023 Comments Unknown Sex and Gender Information Value Date Recorded Sex Assigned at Female 07/26/2022 10:34 AM EDT Legal Sex Female 10:34 AM EDT Gender Identity Female 07/26/2022 10:34 AM EDT Sexual Orientation Straight 07/26/2022 10 :34 AM EDT Last Filed Vital Signs Vital Sign Reading Time Taken Comments Blood Pressure 120/60 02/29/2024 11:03 AM EDT Pulse 87 02/29/2024 11:03 AM EDT Temperature 36.4 ??C (97.6 ??F) 02/29/2024 11:03 AM E DT Respiratory Rate 12 02/29/2024 11:03 AM EDT Oxygen Saturation 98% 02/29/2024 11:03 AM EDT Inhaled Oxygen Concentration - - Weight 89.2 kg (196 lb 9.6 oz) 02/29/2024 11:03 AM EDT Height 160 cm (5' 3 ) 02/29/2024 11:03 AM EDT Body Mass Index 34.83 02/29/2024 11:03 AM EDT Plan of Treatment Health Maintenance Due Date Last Done Comments CT Colonography 1973 Colonoscopy 1973 Colorectal Cancer Screening 1973 FIT DNA/Cologuard 1973 FIT 1973 FOBT 1975 Sigmoidoscopy 1973 Pneumococcal Vaccine: Pediatrics (0 to 5 Years) and At-Risk Patients (6 to 49) Years) (1 of 2 - PCV) 1979 Alcohol/Substance Use Screening 1985 Family Planning (PISQ) 01/31/1988 Hepatitis A Vaccines (1 of 2 - Risk 2-dose series) 01/31/1992 Pneumococcal Vaccine: 50+ Years (1 of 2 - PCV) 01/31/1992 HPV/Cotest 12/03/2022 12/03/2021, 10/28, 11/17/2020 Zoster Vaccines (2 of 2) 04/25/2023 02/28/2023 Depression Screening 02/29/2024 02/28/2023, 02/29/20 23 SDOH Screening 02/29/2024 02/28/2023 Cervical Cancer Screening 03/14/2024 Pap Smear 03/14/2024 03/14/2023, 11/24, 11/15/2020 COVID-19 Vaccine ( season) 2024 09/23/2021, 03/24/2021, 02/24/2021 Influenza Vaccine (#1) 2024 08/20/2020, 2009 Mammogram 07/25/2024 07/25/2023, 06/28, 11/18/2020 Tobacco Screening 02/28/2025 02/29/2024 Lipid Panel 04/06/2029 04/06/2024, 0601/2023, 12/01/2021, Additional history exists DTaP/Tdap/Td Vaccines (2 - Td or Tdap) 02/28/2033 02/28/2023, 08/31/2010 RSV Patients and Patients Aged 60 years or older (1 - 1-dose 75+ series) 01/31/2048 Hepatitis B Vaccines Completed 11/23/2016, 02/05/2016, 07/18/2015 HIV Screening Completed 02/28/2023, 12/01/2021 Hepatitis C Screening Completed 04/06/2024 , 02/28/2023, 12/01/2021 HIB Vaccines Aged Out No longer eligi ble based on patient's age to complete this topic HPV Vaccines Aged Out No longer eligi ble based on patient's age to complete this topic IPV Vaccines Aged Out No longer eligi ble based on patient's age to complete this topic Meningococcal Vaccine Aged Out No shira johny eligible based on patient's age to complete this topic RSV under 20 months Aged Out No longe r eligible based on patient's age to complete this topic Rotavirus Vaccines Aged Out No longer eligible based on patient's age to complete this topic Procedures Procedure Name Priority Date/Time Associated Diagnosis Comments HEPATITIS C AB W/REFL TO HCV RNA, QN, PCR Routine 04/06/2024 11:37 AM EDT Encounter for preventive health examination LIPID PANEL, STANDARD Routine 04/06/2024 11:37 AM EDT Encounter for preventive health examination BI MAMMOGRAM DIAGNOSTIC TOMOSYNTHESIS BILATERAL Routine 07/25/2023 2:53 PM EDT PAP SMEAR Routine 03/14/2023 9:32 AM EDT HIV 1/2 ANTIGEN/ANTIBODY, FOURTH GENERATION W/RFL Routine 02/28/2023 11:33 AM EDT Encounter for preventive health examination ZZZ HISTORICAL HPV E6/E7 RFLX THERESA 16 18/45 Routine 12/03/2021 3:06 PM EST from Last 3 Months or Most Recently Relevant to Health Maintenance Results * Hepatitis C Antibody with Reflex to HCV, RNA, Quantitative, Real-Time PCR (04/06/2024 11:37 AM EDT) Hepatitis C Antibody Nonreactive Nonreactive [facility] Comment:Antibodies to HCV no t detected; does not exclude early acuteHCV infection. Blood Venous blood specimen / Unknown 04/06/2024 11:37 AM EDT 04/06/2024 11:37 AM EDT us Valentina Zambrano MD LAB BLOOD ORDERABLES Final Result [facility] [address] [place] [address] [phone] * (ABNORMAL) Lipid Panel, Standard (04/06/2024 11:37 AM EDT) Triglycerides 62 <150 mg/dL [facility] Comment:Desirable Triglyceri de: less than 150 mg/dLBorderline High Triglyceride 150-199 mg/dLHigh Triglyceride: 200-499 mg/dLVery High Triglyceride: greater than or equal to 5OO mg/dL Cholesterol 169 <200 mg/dL [facility] Comment:Desirable Cholestero l: less than 200 mg/dLBorderline High Cholesterol: 200-239 mg/dLHigh Cholesterol: greater than 239 mg/dL LDL Cholesterol Calculated 100(H) <100 mg/dL [facility] Comment:Desirable LDL: less than 100 mg/dLNear Optimal/Above Optimal LDL: 110- 129 mg/dLBorderline High LDL: 130-159 mg/dLHigh LDL: 160-189 mg/dLVery High LDL: greater than or equal to 190 mg/dL HDL Cholesterol 57 >40 mg/dL [facility] Comment:Desirable HDL: great er than 40 mg/dL Note: This HDL assay may give artificially low results in patients with liver disease. Blood Venous blood specimen / Unknown 04/06/2024 11:37 AM EDT 04/06/2024 11:37 AM EDT us Valentina Zambrano MD LAB BLOOD ORDERABLES Final Result [facility] [address] [place] [address] [phone] * BI Mammogram Diagnostic Tomosynthesis Bilateral (07/25/2023 2:53 PM EDT) Anatomical Region Laterality Modality Breast Bilateral Mammography 07/25/2023 2:53 PM EDT Narrative 07/25/2023 3:52 PM EDT ? [facility] [place] ? [address] ?[place] [address] ? Mammography Report ? Signed ? Patient: Leela Piña R ?MR#: [id number] ?? 9 ? : 1975 ?Acct:[id number] ? Age/Sex: 48 / F ?ADM Date: 10/30/23 ? Loc: HO.MAMMO ? Attending Dr: Kyle Aguirre MD ? Ordering Physician: Kyle Aguirre MD ?Results: 2Benign ?? Findings ? Date of Service: /30/23 ?Follow Up: 1 Year From Orig ?? inal Mammogram ? Procedure(s): MM tomosynthesis diagnostic BI ?? Accession Number(s): [id number] ? cc: Valentina Lopez MD; Kyle Aguirre MD ? EXAMINATION: ?? MM DIAGNOSTIC DIGITAL BREAST TOMOSYNTHESIS, BILATERAL ?? US BREAST LIMITED, RIGHT ? MAMMOGRAPHY: ?? CLINICAL INFORMATION: ? Patient complaining of breast pain upper outer quadrant right breast in ?? the region of old benign biopsy of fibroadenoma. Patient also due for ?? bilateral screening. ? COMPARISON: ?? Mammography: 01/05/2022. 11/18/2020. ? TECHNIQUE: ?? Digital breast tomosynthesis is performed in both the craniocaudal and ?? mediolateral oblique views along with computer-aided detection (CAD). ?? Synthesized 2D images are generated from the tomosynthesis. ? FINDINGS: ?? The breasts are heterogeneously dense, which may obscure small masses ?? (ACR BI-RADS breast composition Category c). ? There is a stable lobular mass in the right breast axillary tail region ?? with a peripheral biopsy clip, corresponding with the known previously ?? biopsied fibroadenoma. ??Otherwise, there is no evidence of developing ?? mass, suspicious grouped calcifications, or areas of architectural ?? distortion in either breast. ? No mammographic abnormality other than the biopsied benign mass is ?? present in the right upper outer quadrant. ? ULTRASOUND: ?? CLINICAL INFORMATION: ?? Patient complaining of breast pain upper outer quadrant right breast in ?? the region of old benign biopsy of fibroadenoma. ? COMPARISON: ?? 12/01/2020. 12/04/2020. ? TECHNIQUE: ?? Targeted sonographic evaluation was performed using a high frequency ?? linear transducer. Attention was given to the right upper outer ?? quadrant in the region of breast pain. Selected archived documentation. ? FINDINGS: ? RIGHT BREAST: There is a mixture of fatty and fibroglandular tissue. ?? There is a stable oval mass present measuring 1.1 x 1.1 x 0.9 cm, with ?? a peripheral placed biopsy clip present, consistent with the known ?? biopsied fibroadenoma. No additional masses are seen. There is no ?? pathologic acoustic shadowing. ??There is no axillary adenopathy. ? MM/MM tomosynthesis diagnostic BI ?? IMPRESSION: ?? No mammographic evidence of malignancy in either breast. ? In the upper outer quadrant of the right breast, only the previously ?? biopsied 1.1 cm fibroadenoma is noted. No additional cause for right ?? upper quadrant breast pain is evident. ? Recommend clinical management for the complaint of breast pain. ? Otherwise, recommend resuming routine mammographic screening. ? OVERALL ASSESSMENT: ?? Mammography: BI-RADS 2 - Benign Findings ?? Ultrasound: BI-RADS 2 - Benign Findings ? RECOMMENDATION: ?? 1. Patient should be managed based on the clinical symptomatology. ? 2. Otherwise, routine annual screening mammography. ? Results were provided to the patient at time of visit by the ?? technologist. ? This patient's information was entered into a reminder system with a ?? target due date for their next mammogram. ? Dictated By: ?Sukumar Lucas MD ? Signed By: ?<Electronically signed by Sukumar Lucas MD in OV> ?07/25/23 1548 ? DD/ 1453 ? TD/TT: ? Area Operations Manager: ? Procedure Note Regla, Image - 07/25/2023 [facility] [address] [place] [address] [address] [place], [place] [address] Mammography Report Signed Patient: Leela Piña R#: [id number] 9 : 1975Acct:[id number] Age/Sex: 48 / FADM Date: 07/25/23 Loc: [facility] Attending Dr: Kyle Aguirre MD Ordering Physician: Kyle Aguirreults: 2Benign Findings Date of Service: 07/25/23Follow Up: 1 Year From Orig ina Mammogram Procedure(s): MM tomosynthesis diagnostic BI Accession Number(s): [id number] cc: Valentina Lopez MD; Kyle Aguirre MD 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 Patient also due for bilateral screening. COMPARISON: Mammography: 01/05/2022. 11/18/2020. TECHNIQUE: Digital breast tomosynthesis is performed in both the craniocaudal and mediolateral oblique views along with computer-aided detection (CAD). Synthesized 2D images are generated from the tomosynthesis. FINDINGS: The breasts are heterogeneously dense, which may obscure small masses (ACR BI-RADS breast composition Category c). There is a stable lobular mass in the right breast axillary tail region with a peripheral biopsy clip, corresponding with the known previously biopsied fibroadenoma. Otherwise, there is no evidence of developing mass, suspicious grouped calcifications, or areas of architectural distortion in either breast. No mammographic abnormality other than the biopsied benign mass is present in the right upper outer quadrant. ULTRASOUND: CLINICAL INFORMATION: Patient complaining of breast pain upper outer quadrant right breast in the region of old benign biopsy of fibroadenoma. COMPARISON: 12/01/2020. 12/04/2020. TECHNIQUE: Targeted sonographic evaluation was performed using a high frequency linear transducer. Attention was given to the right upper outer quadrant in the region of breast pain. Selected archived documentation. FINDINGS: RIGHT BREAST: There is a mixture of fatty and fibroglandular tissue. There is a stable oval mass present measuring 1.1 x 1.1 x 0.9 cm, with a peripheral placed biopsy clip present, consistent with the known biopsied fibroadenoma. No additional masses are seen. There is no pathologic acoustic shadowing. There is no axillary adenopathy. MM/MM tomosynthesis diagnostic BI IMPRESSION: No mammographic evidence of malignancy in either breast. In the upper outer quadrant of the right breast, only the previously biopsied 1.1 cm fibroadenoma is noted. No additional cause for right upper quadrant breast pain is evident. Recommend clinical management for the complaint of breast pain. Otherwise, recommend resuming routine mammographic screening. OVERALL ASSESSMENT: Mammography: BI-RADS 2 - Benign Findings Ultrasound: BI-RADS 2 - Benign Findings RECOMMENDATION: 1. Patient should be managed based on the clinical symptomatology. 2. Otherwise, routine annual screening mammography. Results were provided to the patient at time of visit by the technologist. This patient's information was entered into a reminder system with a target due date for their next mammogram. Dictated By: Sukumar Lucas MD Signed By: <Electronically signed by Sukumar Lucas MD in OV> 07/25/23 1548 DD/ 1453 TD/TT: Area Operations Manager: [facility] External Provider IMG BI PROCEDURES Final Result * Pap Smear (03/14/2023 9:32 AM EDT) 03/14/2023 9:32 AM EDT 03/16/2023 8:20 AM EDT [facility] - 04/06/2023 11:35 AM EDT ----- ------- Name: Leela Piña ?Age/Sex: 48/F ? : 1975 Unit#: [id number] ?? Attend Dr: Kyle Aguirre MD ?Re03/14/23 ?Status: DEP REF ? Location: HO.LNP ?Disch: ? ----- ------- SPEC : [id number] ? RECD: 03/16/23 ? STATUS: ??SOUT ? REQ NUM: [id number] ? TARA: 03/14/23 ? SUBM DR: Kyle Aguirre MD ? ENTERED: ??03/16/23 ?SP TYPE: Pap Smr ?OTHR DR: Valentina Lopez MD ? ORDERED: ??Pap Smear ? Interpretation ?? Satisfactory for evaluation. ?? Coccobacilli consistent with shift in vaginal mireya. ?? Negative for intraepithelial lesion or malignancy. ?HPV mRNA E6/E7: ?NOT DETECTED ? This assay detects E6/E7 viral messenger RNA (mRNA) from 14 high-risk HPV types (16, 18, ?? 31, 33, 35, 39, 45, 51, 52, 56, 58, 59, 66, 68) ?? HPV testing performed by [facility], [place], [place]. ??See reference laboratory ?? pion of the EMR for entire report. ?Clinical Information LMP:Unknown date Previous PAP test: 2021, Abnormal Other history: 11/16, HPV+ ? Material Received ?? ThinPrep-Cervical Copies To: ?? Valentina Lopez MD ?? [address] ?? [place] [address] ?? [phone] ?? Kyle Aguirre MD ?? [address] [facility] ?? [place] [address] ?? [phone] ----- ------- Signed (signature on file) CHRISTOPHER Landers (ASCP) 04/06/23 1135 ? ----- ------- ? END OF REPORT ? us [facility] External Provider LAB CYT OLOGY ORDERABLES Final Result [facility] [address] [place] [address] [phone] * HIV-1/2 Antigen and Antibodies, Fourth Generation, with Reflexes (02/28/2023 11:33 AM EDT) Pathologist [facility] HIV Antigen/Antibody, 4th Generation NON-REAC TIVE NON-REAC TIVE [facility] Comment: HIV-1 antigen and HIV-1/HIV-2 antibodies were not detected. There is no laboratory evidence of HIV infection. PLEASE NOTE: This information has been disclosed to you from records whose confidentiality may be protected by state law. ??If your state requires such protection, then the state law prohibits you from making any further disclosure of the information without the specific written consent of the person to whom it pertains, or as otherwise permitted by law. A general authorization for the release of medical or other information is NOT sufficient for this purpose. ?? For additional information please refer to http://InsightETE.Zenter/faq/FDA383 (This link is being provided for informational/ educational purposes only.) The performance of this assay has not been clinically validated in patients less than 2 years old. Blood Venous blood specimen / Unknown 02/28/2023 11:33 AM EDT 02/28/2023 11:34 AM EDT [facility] - 03/04/2023 12:16 AM EDT FASTING:NO FASTING: NO Valentina Zambrano MD LAB BLOOD ORDERABLES Final Result [facility] [address], [facility] [place] [address] [facility] [address] [place] [address] * HPV E6/E7 RFLX THERESA 16 18/45 (12/03/2021 3:06 PM EST) Pathologist [facility] HPV mRNA E6/E7 rflx Not Detected Not Detected [facility] Comment: Methodology: Dope Maintenance Worker-Mediated Amplification This assay detects E6/E7 viral messenger RNA (mRNA) from 14 high-risk HPV types (16,18,31,33,35,39,45,51,52,56,58,59,66,68). The analytical performance characteristics of this assay have been determined by [facility]. The modifications have not been cleared or approved by the FDA. This assay has been validated pursuant to the CLIA regulations and is used for clinical purposes. For additional information, please refer to http://education.Zenter/faq/QDG898n6 (This link if provided for information/ educational purposes only.) THIS TEST WAS PERFORMED AT: [facility] [address] [place] [address] [address] [place], [place] ??[phone] LOLY ARNOLD MD 12/03/2021 3:06 PM EST us Kyle Aguirre MD HISTORICAL/NON ORDERABLE LABS Fi nal Result [facility] [address] from Last 3 Months or Most Recently Relevant to Health Maintenance [facility] Care Teams Switch Coupler Relationship Specialty Start Date End Date Valentina Lopez MD [address] [place] [id number] PCP - General Family Medicine 08/03/18
--- OUTSIDE RECORDS SUMMARY | 2024-10-31 16:37 | XMS_ITS ---
Author Organization [facility] Address [address] [place] [address] Phone Care Team Providers Care Geotechnician Name Role Phone [facility] Primary Care Provider [phone] [facility] Unavailable [phone] Plan of Treatment No Plan of Treatment Recorded Assessments Includes: Assessments for all patient encounters No Assessments Recorded Medical Equipment - Implanted Devices Includes: Current and historical Devices No Medical Equipment Recorded Medications Administered Includes: Administered Medications in patient's chart No Administered Medications Recorded Results Includes: Results from 10/31/2023 through 10/31/2024 No Results Recorded For Specified Dates History of Present Illness History of Present Illness not supported for this document type No History of Present Illness Recorded Social History No Social History Recorded - Smoking Status Unknown Medical History Includes: Medical History in patient's chart No Medical History Recorded Family History Includes: Family History in patient's chart No Family History Recorded Review of Systems Review of Systems not supported for this document type No Review of Systems Recorded Mental Status No Mental Status Recorded Functional Status No Functional Status Recorded Physical Exam Physical Exam not supported for this document type No Physical Exam Recorded Insurance Includes: Active Insurance Policies Plan Name Member ID Group # Subscriber Relationship Effect jeferson Dates 1 - [facility] [id number] Leela Piña Self Clinical Notes Includes: Signed Clinical Notes starting from 09/05/2022 No Clinical Notes Recorded
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
--- OUTSIDE RECORDS SUMMARY | 2024-10-31 16:37 | XMS_ITS ---
Care Plan - [facility] Created on: October 31, 2024 Leela Piña : 1975 Sex: Female Author Organization [facility] Address [address] [place] [address] Phone Care Team Providers Care Hydroelectric Plant Operator Name Role Phone Se Shane Primary Care Provider [phone] [facility] Unavailable [phone]
--- OUTSIDE RECORDS SUMMARY | 2024-10-31 16:37 | XMS_ITS | Clinical Summary ---
Author Organization [facility] Address [address] [place] [address] Phone Care Team Providers Care Transit Bus Driver Name Role Phone [facility] Primary Care Provider [phone] [facility] Unavailable [phone] Reason for Visit and Chief Complaint Established [...] Subscriber Relationship Effect jeferson Dates 1 - [facility] [id number] Leela Piña Self Clinical Notes Includes: Clinical Notes from this encounter No Clinical Notes Recorded
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
[2024-11-01 07:38] LABS: HIV AB/AG Nonreactive (Nonreactive); HIV Num 1 0.06 S/CO (0.00-0.99); ~HepC Num1 0.06 S/CO (0.00-0.79); ~Hepatitis C Antibody Nonreactive (Nonreactive)
[2024-11-07 13:44] LABS: RPR Rapid Plasma Reagin NON-REACTIVE (NON-REACTIVE)
== END 2024-10-31 15:15 | disposition home or self-care (01) ==
LOC: HO.LAB 15:14
PROVIDERS: PCP Internal Medicine; Visit Provider Internal Medicine
DX: A53.9 Syphilis, unspecified (principal)
CPT/HCPCS: 36415; 86592; 86803; 87389; 99212

== ENCOUNTER 2025-01-31 14:10 | Outpatient (REF) | payer OTHER, SELFPAY ==
--- OUTSIDE RECORDS SUMMARY | 2025-01-31 15:32 | XMS_ITS | Clinical Summary ---
Author Organization [facility] Address [address] [place] [address] Care Team Providers Care Medical Liaison Name Role Phone Unavailable Primary Care Provider [...] gelIndications: Caries Place in mouth once daily [place] twice daily. Expectorate after use. Do not [...] 2018 Imm-Zoster, Recombinant (1 of 2) 2023 [id number] ( season) 2024 021, 02/24/2021 Imm-Influenza (#1) 2024 08/20/2020 Alcohol and Drug Screen 09/26/2024 Depression Annual Screen 09/26/2024 Cervical Ablation/Cold-Knife Conization Discontinued Cervical Cryotherapy Discontinued Colposcopy Discontinued Endometrial Biopsy Discontinued Excision/Leep Discontinued HPV Genotyping Discontinued Vaginal Pap Discontinued Vulvoscopy Discontinued Insurance [place] MEDICAID DENTAL [facility] [address] ACO
--- OUTSIDE RECORDS SUMMARY | 2025-01-31 15:32 | XMS_ITS | Clinical Summary ---
Author Organization [facility] ity Address [address] [place] [phone] Care Team Providers Care Clinical Informatics Strategist Name Role Phone Unavailable Primary Care Provider [...]
--- OUTSIDE RECORDS SUMMARY | 2025-01-31 15:32 | XMS_ITS | Encounter Summary ---
Author Organization [employer] Address [address] [place] [address] 7 [place] [address] Care Team Providers Care Parking Ramp Attendant Name Role Phone Valentina Lopez MD Primary Care Provide r Encounter Details Date Type Department Care Team (Late st Contact Info) Description 06/20/2023 Orders Only [facility] [address] [place] [phone] ProviderMisael MD Social History Tobacco Use Types [...] Description 02/20/2025 3:00 PM EDT Office Visit [facility] [address] [place], [place] [phone] Hung Owen DDS [address] [place] [address] 03/13/2025 10:45 AM EDT Office Visit [facility] [address] [place] [phone] Valentina Lopez MD [address] [place] [address] 07/24/2025 3:00 PM EDT Office Visit [facility] [address] [place] [address] Lilliana Hu [address] [place] [address] documented as of this encounter Procedures Procedure [...] documented as of this encounter Care Teams Parking Ramp Attendant Relationship Specialty Start Date End Date Valentina Lopez MD [address] [place] [phone] PCP - General Family Medicine 08/03/18 documented as of this encounter
--- OUTSIDE RECORDS SUMMARY | 2025-01-31 15:32 | XMS_ITS | Clinical Summary ---
Author Organization [employer] Address [address] [facility] 7t [place] [address] Care Team Providers Care Resident Medical Officer Name Role Phone Valentina Lopez MD Primary [...] Description 01/09/2025 1:00 PM EDT Office Visit [facility] ADULT DENTAL [address] [place] [address] Mayte, Lilliana Tipped teeth (Primary Dx); Periodontal [...] Description 02/20/2025 3:00 PM EDT Office Visit [facility] ADULT DENTAL [address] [place] [address] Hung Owen DDS [address] [place] [address] 03/13/2025 10:45 AM EDT Office Visit [facility] MEDICINE [address] [place] [address] Valentina Lopez MD [address] [place] [address] 07/24/2025 3:00 PM EDT Office Visit [facility] ADULT DENTAL [address] [place] [address] Lilliana Hu [address] [place] [address] Health Maintenance Due Date Last Done Comments [...] PM EST) Hepatitis C Antibody Nonreactive Nonreactive [facility] Comment:Antibodies to HCV no t detected; does not exclude early acuteHCV infection. 10/31/2024 4:14 PM EST 10/31/2024 4:14 PM EST us Generic External Data Provider LAB BLOOD ORDERAB LES Final Result [facility] [address] [place] [phone] * HIV-1/2 Antigen and Antibodies, Fourth Generation, with Reflexes (10/31/2024 4:14 PM EST) HIV AB/AG Nonreactive Nonreactive [facility] Comment:HIV-1 p24 Ag and/or HIV-1/HIV-2 Ab not detected.A test result that is nonreactive does not exclude thepossibility of exposure to or infection with HIV-1 and/orHIV-2. Nonreactive results in this assay for individualswith prior exposure to HIV-1 and/or HIV-2 may be due toantigen and antibody levels that are below the limit ofdetection of this assay.The TempoIQ HIV Ag/Ab Combo assay result andsupplemental assay results should be interpreted inconjunction with the patient's clinical presentation,history and other laboratory results. If the results areinconsistent with clinical evidence, additional testing issuggested to confirm the result. 10/31/2024 4:14 PM EST 10/31/2024 4:14 PM EST us Generic External Data Provider LAB BLOOD ORDERAB LES Final Result Performing Organization Address [facility] Co de Phone Number [facility] [address] [place] [address] [phone] * (ABNORMAL) Lipid Panel, Standard (04/06/2024 11:37 AM EDT) Triglycerides 62 <150 mg/dL [facility] Comment:Desirable Triglyceri de: less than 150 mg/dLBorderline High Triglyceride 150-199 mg/dLHigh Triglyceride: 200-499 mg/dLVery High Triglyceride: greater than or equal to 5OO mg/dL Cholesterol 169 <200 mg/dL [facility] Comment:Desirable Cholestero l: less than 200 mg/dLBorderline High Cholesterol: 200-239 mg/dLHigh Cholesterol: greater than 239 mg/dL LDL Cholesterol Calculated 100(H) <100 mg/dL [facility] Comment:Desirable LDL: less than 100 mg/dLNear Optimal/Above Optimal LDL: 110- 129 mg/dLBorderline High LDL: 130-159 mg/dLHigh LDL: 160-189 mg/dLVery High LDL: greater than or equal to 190 mg/dL HDL Cholesterol 57 >40 mg/dL [facility] Comment:Desirable HDL: great er than 40 mg/dL Note: This HDL assay may give artificially low results in patients with liver disease. Blood Venous blood specimen / Unknown 04/06/2024 11:37 AM EDT 04/06/2024 11:37 AM EDT us Valentina Zambrano MD LAB BLOOD ORDERABLES Final Result Performing Organization Address City/[facility]/ZIP Co de Phone Number [facility] [address] [place] [phone] [phone] * BI Mammogram Diagnostic Tomosynthesis Bilateral (07/25/2023 2:53 PM EDT) Anatomical Region Laterality Modality Breast Bilateral Mammography 07/25/2023 2:53 PM EDT Narrative 07/25/2023 3:52 PM EDT ? [facility] ? [address] ?[place] [address] ? Mammography Report ? Signed ? Patient: Wang,Leela R ?MR#: [id number] ?? 9 ? : 1975 ?Acct:[id number] ? Age/Sex: 48 / F ?ADM Date: 07/25/23 ? Loc: HO.MAMMO ? Attending Dr: Kyle Aguirre MD ? Ordering Physician: Kyle Aguirre MD ?Results: 2Benign ?? Findings ? Date of Service: 07/25/23 ?Follow Up: 1 Year From Orig ?? inal Mammogram ? Procedure(s): MM tomosynthesis diagnostic BI ?? Accession Number(s): [id number] ? cc: Valentina Lopez MD; Kyle Aguirre [...] 1548 ? DD/ 1453 ? TD/TT: ? Shirt Turner: ? Procedure Note Donotuseinterpreter, Image - [facility]25[facility]20[facility] [address] [place] [address] Mammography Report Signed Patient: Leela Piña RMR#: [id number] 9 : 1975Acct:[id number] Age/Sex: 48 / FADM Date: 07/25/23 Loc: [facility] Attending Dr: Kyle Aguirre MD Ordering Physician: Kyle Aguirre MDResults: 2Benign Findings Date of Service: 07/25/23Follow Up: 1 Year From Orig inal Mammogram Procedure(s): MM tomosynthesis diagnostic BI Accession Number(s): [id number] cc: Valentina Lopez MD; Kyle Aguirre MD [...] in OV> 07/25/23 1548 DD/ 1453 TD/TT: Shirt Turner: [facility] External Provider IMG BI PROCEDURES Final Result * Pap Smear (03/14/2023 9:32 AM EDT) 03/14/2023 9:32 AM EDT 03/16/2023 8:20 AM EDT Narrative [facility] - 04/06/2023 11:35 AM EDT ----- ------- Name: Leela Piña ?Age/Sex: 48/F ? : 1975 Unit#: [id number] ?? Attend Dr: Kyle Aguirre MD ?Re03/14/23 ?Status: DEP REF ? Location: HO.LNP ?Disch: ? ----- ------- SPEC : [id number] ? RECD: 03/16/23 ? STATUS: ??SOUT ? REQ NUM: [id number] ? TARA: 03/14/23 ? SUBM DR: Kyle Aguirre MD ? ENTERED: ??03/16/23-8329 ?SP TYPE: Pap Smr ?OTHR DR: Valentina [...] 66, 68) ?? HPV testing performed by [facility], [place], [place]. ??See reference laboratory ?? pion of the EMR for entire report. ?Clinical Information LMP:Unknown date Previous PAP test: 2021, Abnormal Other history: 11/16, HPV+ ? Material Received ?? ThinPrep-Cervical Copies To: ?? Valentina Lopez MD ?? [address] [facility] ?? [place] [address] ?? [phone] ?? Kyle Aguirre MD ?? [address] [place] [address] Dr. Reina [facility] ?? [place] [address] ?? [phone] ----- ------- Signed (signature on file) CHRISTOPHER Landers (ASCP) 04/06/23 1135 ? ----- ------- ? END OF REPORT ? [facility] External Provider LAB CYT OLOGY ORDERABLES Final Result Performing Organization Address [facility] Co de Phone Number [facility] [address] [place] [address] [phone] * HPV E6/E7 RFLX THERESA 16 18/45 (12/03/2021 3:06 PM EST) [facility] HPV mRNA E6/E7 rflx Not Detected Not Detected [facility] Comment: Methodology: Green Chain Marker-Mediated Amplification This assay detects E6/E7 viral messenger RNA (mRNA) from 14 high-risk HPV types (16,18,31,33,35,39,45,51,52,56,58,59,66,68). The analytical performance characteristics of this assay have been determined by [facility]. The modifications have not been cleared or approved by the FDA. This assay has been validated pursuant to the CLIA regulations and is used for clinical purposes. For additional information, please refer to http://education.[employer] [facility]/faq/PGR848h8 (This link if provided for information/ educational purposes only.) THIS TEST WAS PERFORMED AT: [employer] [address] [facility] [address] [place], [place] ??[phone] LOLY ARNOLD MD 12/03/2021 3:06 PM EST Kyle Aguirre MD HISTORICAL/NON ORDERABLE LABS Fi nal Result Performing Organization Address City/[facility]/ZIP Co de Phone Number [employer] [address] from Last 3 Months or Most Recently Relevant to Health Maintenance Insurance * Guarantor: Leela Piña Account Type Relation to Patient Date of Phone Billing Address Personal/Family Self [address] Care Teams Resident Medical Officer Relationship Specialty Start Date End Date Valentina Lopez MD [address] [place] [address] PCP - General Family Medicine 08/03/18
== END 2025-01-31 14:11 | disposition home or self-care (01) ==
LOC: HO.LAB 14:10
PROVIDERS: PCP Internal Medicine; Visit Provider Obstetrics & Gynecology
DX: Z01.419 Encounter for gynecological examination (general) (routine) without abnormal findings (principal); N95.0 Postmenopausal bleeding; N76.0 Acute vaginitis; B96.89 Other specified bacterial agents as the cause of diseases classified elsewhere; R31.29 Other microscopic hematuria
CPT/HCPCS: 81002; 99212; 99396; 99459

== ENCOUNTER 2025-01-31 14:10 | Outpatient (AMB) | payer OTHER, SELFPAY ==
--- NOTE | 2025-01-31 14:13 | A.OFFVIS_ITS ---
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 Complaining of spotting after going to the toilet after few years of amenorrhea in addition to vulvovaginal discharge with foul odor Last Pap/HPV was in 03/18 was negative Last Mammogram was BI-RADS 2 in 07/18 No previous screening [facility] Medical History Anxiety and depression Fibroadenoma Morbid obesity Breast mass, right HPV in female Surgical History Hx of dilation and curettage History of Social History Are you a primary career consultant to a significant other at home: No Do you presently have visiting nurse or other home services: No Alcohol intake: current Alcohol intake frequency: holidays/special occasions only Patient Tobacco Use Status: Current everyday Tobacco user Cigarettes Per Day: 10 Sexual orientation: Straight/Heterosexual Gender identity: Female Female Reproductive History Menstrual Age of Menarche: 7 control method: none Total pregnancies: 2 Full term: 2 Date of last pap smear: 03/14/23 (negative pap smear, negative hpv ) History of abnormal pap smear: Yes Date of Mammogram: 07/25/23 (bi rad 2) Review of Systems Const All systems reviewed & are unremarkable except as noted in HPI and below Card Reports as per HPI Resp Reports as per HPI GI Reports as per HPI and Reports no additional complaints Reports as per HPI Physical Exam Const General: cooperative, healthy appearing and comfortable Chest Chest palpation & inspection: normal inspection of the chest and normal palpation of entire chest wall Breast/axilla inspection: normal inspection of the breasts and normal inspection of the axillae Breast/axilla palpation: normal palpation of the breasts, normal palpation of the axillae and no axillary lymphadenopathy Resp Effort & Inspection: normal respiratory effort Auscultation: clear to auscultation bilaterally Percussion: percussion normal Cardio Palpation: normal PMI Rate: regular rate Rhythm: regular rhythm Heart sounds: no murmurs and no rubs Peripheral pulses: Peripheral pulses 2+ throughout GI Inspection: Yes normal to inspection Palpation (GI): Soft to palpation, nontender, no guarding, not rigid and No hepatosplenomegaly present Percussion: Yes normal to percussion Auscultation: normal bowel sounds Rectal Exam - Female: deferred General: Yes bladder normal to palpation External Female Exam: No lesion Speculum Exam - Vagina: normal appearance of the vagina, normal palpation, normal vaginal discharge and not erythematous Speculum Exam - Cervix: normal appearance of the cervix and normal palpation Bimanual exam- vagina & uterus: normal bimanual exam, normal palpation, uterine size normal, bladder normal to palpation, consistency normal and normal palpation Bimanual Exam- Adnexa, other: normal adnexae, no masses and no tenderness Assessment & Plan Assessment & Plan (1) Well woman exam: Comment: History of HPV positive negative Pap smear in followed by negative co testing in 2021 Code(s): Z01.419 - Encounter for gynecological examination (general) (routine) without abnormal findings Category: Medical Plan: Co testing done. Counseled the patient about the recommended dietary allowance of 1200 mg of Calcium & 600 IU of vitamin D. Mammogram ordered. The patient was referred to GI for screening colonoscopy . The patient was instructed to perform monthly self-breast exams and schedule annual exam in a year. All questions answered and the patient verbalized understanding. (2) Postmenopausal bleeding: Code(s): N95.0 - Postmenopausal bleeding Category: Medical Plan: Discussed with the patient the differential diagnosis of post menopausal bleeding with normal pelvic exam including but not limited to, endometrial hyperplasia, cancer, polyps and other causes; co testing done, recommended ultrasound to measure the endometrial stripe; discussed with the patient that if the endometrial thickness is 4 mm or less the negative predictive value of endometrial pathology is 99%, otherwise If endometrial thickness is more than 4 mm will proceed with endometrial sampling versus hysteroscopy D&C polypectomy depending on the ultrasound findings. Instructed the patient to schedule an ultrasound with a follow-up appointment in 2 weeks. All questions answered, the patient verbalized understanding and agreed with the plan. This note was generated with a voice recognition program. Some errors may have been overlooked during the review of this note. Sometimes these errors may affect the content or meaning of a given sentence. (3) Bacterial vaginosis: Code(s): N76.0 - Acute vaginitis; B96.89 - Other specified bacterial agents as the cause of diseases classified elsewhere Category: Medical Plan: GC and chlamydia cultures with BV panel taken. Per CDC recommendation, will screen for STI, HepBs Ag, HIV, RPR, Hep C Ab ordered. Will treat with Flagyl 500 mg p.o. b.i.d. x 7 days, Instructions given to the patient to refrain from sexual activity or to use condoms consistently and correctly during the BV treatment regimen, not to douch, it might increase the risk for relapse, and to call if symptoms persist or recur. (4) Microscopic hematuria: Code(s): R31.29 - Other microscopic hematuria Category: Medical Plan: Urine dip showed microscopic hematuria, urine culture sent. Will repeat urine dip in 2 weeks. Discussed with the patient the possible causes of microscopic hematuria including but not limited to: interstitial cystitis, polyps, stones, masses, urethral inflammatory processes and others. If Urine Culture is negative and repeat urine dip in 2 weeks shows persistent microscopic hematuria, will proceed with CT abdomen/pelvis and urology referral. Instructions given the patient to schedule a 2 week urine dip follow-up appointment. All questions answered and the patient verbalized understanding. Orders: Orders MM tomosynthesis screening BI Today Z12.31 - Encounter for screening mammogram for malignant neoplasm of breast Hepatitis C Antibody Today B96.89 - Other specified bacterial agents as the cause of diseases classified elsewhere, N76.0 - Acute vaginitis US pelvic and transvaginal Today N95.0 - Postmenopausal bleeding Hepatitis B Surface Antigen Today B96.89 - Other specified bacterial agents as the cause of diseases classified elsewhere, N76.0 - Acute vaginitis HIV Ab/Ag Today B96.89 - Other specified bacterial agents as the cause of diseases classified elsewhere, N76.0 - Acute vaginitis Syphilis Screen Today B96.89 - Other specified bacterial agents as the cause of diseases classified elsewhere, N76.0 - Acute vaginitis Referrals Gastroenterology Referral Z12.11 - Encounter for screening for malignant neoplasm of colon Medications: New metronidazole 500 mg PO BID 7 days 14 tabs 0RF Coding Level of Care Code Est Pt Level 3 (75832) Est Pt Prev Care 40-64y(26669) Diagnoses Well woman exam Z01.419 Postmenopausal bleeding N95.0 Bacterial vaginosis N76.0; B96.89 Microscopic hematuria R31.29
[2025-01-31 14:22] VITALS: BP 122/70; BMI 32.9
--- OUTSIDE RECORDS SUMMARY | 2025-01-31 15:02 | XMS_ITS | Clinical Summary ---
Author Organization [employer] Address [address] [facility] 7t [place] [address] Care Team Providers Care Dental Prosthetist Name Role Phone Valentina Lopez MD Primary [...] for 5 days 30 each 4 Active Additional Information Patient not taking.Reported on 01/09/2025 acetaminophen (Tylenol) 500 MG tablet Take 2 [...] 60 tablet 1 4 04/11/20 25 Active Additional Information Patient not taking.Reported on 01/09/2025 Active Problems Problem Noted Date Diagnosed Date Tipped teeth 01/09/2025 Periodontal disease 01/09/2025 Dental calculus 01/09/2025 Missing teeth, acquired 01/09/2025 Dental caries 01/09/2025 Urinary frequency 04/11/2024 Assessment & Plan (04/11/2024 [...] ogram for malignant neoplasm of breast 02/28/2023 Encounters Date Type Department Care Team Description 01/09/2025 1:00 PM EDT Office Visit [facility] [address] [place] [address] Mayte, Lilliana Tipped teeth (Primary Dx); Periodontal disease; Dental calculus; Missing teeth, acquired; Dental caries from Last 3 Months Immunizations Name Administration Dates Next Due Hep [...] Sign Reading Time Taken Comments Blood Pressure 128/74 01/09/2025 12:51 PM EDT Pulse 87 02/29/2024 11:03 AM EDT [...] 02/29/2024 11:03 AM EDT Plan of Treatment Upcoming Encounters Date Type Department Care Team (Late st Contact Info) Description 02/20/2025 3:00 PM EDT Office Visit [facility] [address] [place] [address] Hung Owen DDS [address] [place] [address] 03/13/2025 10:45 AM EDT Office Visit [facility] [address] [place] [address] Valentina Lopez MD [address] [place] [address] 07/24/2025 3:00 PM EDT Office Visit [facility] [address] [place] [address] Lilliana Hu [address] [place] [address] Health Maintenance Due Date Last Done Comments CT Colonography 1973 Colonoscopy 1973 Colorectal Cancer Screening 1973 FIT DNA/Cologuard 1973 FIT 1973 FOBT 1973 Sigmoidoscopy 1973 Alcohol/Substance Use Screening 1985 Family Planning (PISQ) 01/31/1988 Pneumococcal Vaccine: 50+ Years (1 of 2 - PCV) 01/31/1992 Zoster Vaccines (2 of 2) 04/25/2023 02/28/2023 Depression Screening 02/29/2024 02/28/2023, 02/29/20 23 SDOH Screening 02/29/2024 02/28/2023 COVID-19 Vaccine ( season) 2024 09/23/2021, 03/24/2021, 02/24/2021 Influenza Vaccine (#1) 2024 08/20/2020, 2009 Mammogram 07/25/2024 07/25/2023, 06/28, 11/18/2020 Dental Oral Exam 07/12/2025 01/09/2025 Dental Prophylaxis 07/12/2025 01/09/2025 Tobacco Screening 01/09/2026 01/09/2025 Dental X-Ray: Bitewings 01/10/2026 01/09/2025 Dental X-Ray: Full Mouth 01/11/2028 01/09/2025 Cervical Cancer Screening 03/14/2028 HPV/Cotest 03/14/2028 12/03/2021, 10/28, 11/17/2020 Pap Smear 03/14/2028 03/14/2023, 03, 11/15/2020 Lipid Panel 04/06/2029 04/06/2024, 01/2023, 12/01/2021, Additional history exists DTaP/Tdap/Td Vaccines (2 - Td or Tdap) 02/28/2033 02/28/2023, 08/31/2010 RSV Patients and Patients Aged 60 years or older (1 - 1-dose 75+ series) 01/31/2048 Hepatitis B Vaccines Completed 11/23/2016, 02/05/2016, 07/18/2015 HIV Screening Completed 10/31/2024, 01/2023, 12/01/2021 Hepatitis C Screening Completed 10/31/2024 , 04/06/2024, 02/28/2023, Additional history exists HIB Vaccines Aged Out No longer eligi [...] Procedure Name Priority Date/Time Associated Diagnosis Comments COMPREHENSIVE ORAL EVALUATION - NEW OR ESTABLISHED PATIENT Routine 01/09/2025 1:00 PM EDT CASE PRESENTATION, DETAILED AND EXTENSIVE TREATMENT PLANNING Routine 01/09/2025 1:00 PM EDT Tipped teeth Periodontal disease Dental calculus Missing teeth, acquired ORAL HYGIENE INSTRUCTIONS Routine 01/09/2025 1:00 PM EDT Tipped teeth Periodontal disease Dental calculus Missing teeth, acquired INTRAORAL - COMPLETE SERIES OF RADIOGRAPHIC IMAGES Routine 01/09/2025 1:00 PM EDT Tipped teeth Periodontal disease Dental calculus Missing teeth, acquired PROPHYLAXIS - ADULT Routine 01/09/2025 1 :00 PM EDT Periodontal disease Dental calculus 19,30 PARTIAL DENTURE - RESIN Routine 01/09/2025 12:00 AM EDT 3,4,5,13 PARTIAL DENTURE - RESIN Routine 01/09/2025 12:00 AM EDT 10 D COMPOSITE FILLING Routine 12:00 AM EDT 32 O AMALGAM FILLING Routine 01/09/2025 12:00 AM EDT 21 B(V) COMPOSITE FILLING Routine 01/09/2025 12:00 AM EDT 18 KAYLA AMALGAM FILLING Routine 01/09/2025 12:00 AM EDT 12 PFM CROWN Routine 01/09/2025 12:00 AM EDT 12 ROOT CANAL Routine 01/09/2025 12:00 AM EDT 11 M COMPOSITE FILLING Routine 12:00 AM EDT 10 M COMPOSITE FILLING Routine 12:00 AM EDT 9 PFM CROWN Routine 01/09/2025 12:00 AM EDT 8 PFM CROWN Routine 01/09/2025 12:00 AM EDT 7 MDFL COMPOSITE FILLING Routine 01/09/2025 12:00 AM EDT 2 LO AMALGAM FILLING Routine 01/09/2025 12:00 AM EDT 31 EXTRACTION Routine 01/09/2025 12:00 AM EDT 30 EXTRACTION Routine 01/09/2025 12:00 AM EDT 19 EXTRACTION Routine 01/09/2025 12:00 AM EDT 17 EXTRACTION Routine 01/09/2025 12:00 AM EDT 16 EXTRACTION Routine 01/09/2025 12:00 AM EDT 13 EXTRACTION Routine 01/09/2025 12:00 AM EDT 5 EXTRACTION Routine 01/09/2025 12:00 AM EDT 4 EXTRACTION Routine 01/09/2025 12:00 AM EDT 3 EXTRACTION Routine 01/09/2025 12:00 AM EDT 1 EXTRACTION Routine 01/09/2025 12:00 AM EDT 14 O AMALGAM FILLING Routine 01/09/2025 12:00 AM EDT 14 M COMPOSITE FILLING Routine 12:00 AM EDT HEPATITIS C ANTIBODY Routine 10/31/2024 4:14 PM EST HIV 1/2 ANTIGEN/ANTIBODY, FOURTH GENERATION W/RFL Routine 10/31/2024 4:14 PM EST LIPID PANEL, STANDARD Routine 04/06/2024 11:37 AM EDT Encounter for preventive health examination BI MAMMOGRAM DIAGNOSTIC TOMOSYNTHESIS BILATERAL Routine 07/25/2023 2:53 PM EDT PAP SMEAR Routine 03/14/2023 9:32 AM EDT ZZZ HISTORICAL HPV E6/E7 RFLX THERESA 16 18/45 Routine 12/03/2021 3:06 PM EST from Last 3 Months or Most Recently Relevant to Health Maintenance Results * Hepatitis C Ab (10/31/2024 4:14 PM EST) Hepatitis C Antibody Nonreactive Nonreactive [facility] Comment:Antibodies to HCV no t detected; does not exclude early acuteHCV infection. 10/31/2024 4:14 PM EST 10/31/2024 4:14 PM EST us Generic External Data Provider LAB BLOOD ORDERAB LES Final Result [facility] [address] [place] [phone] * HIV-1/2 Antigen and Antibodies, Fourth Generation, with Reflexes (10/31/2024 4:14 PM EST) HIV AB/AG Nonreactive Nonreactive [facility] Comment:HIV-1 p24 Ag and/or HIV-1/HIV-2 Ab not detected.A test result that is nonreactive does not exclude thepossibility of exposure to or infection with HIV-1 and/orHIV-2. Nonreactive results in this assay for individualswith prior exposure to HIV-1 and/or HIV-2 may be due toantigen and antibody levels that are below the limit ofdetection of this assay.The [facility] HIV Ag/Ab Combo assay result andsupplemental assay results should be interpreted inconjunction with the patient's clinical presentation,history and other laboratory results. If the results areinconsistent with clinical evidence, additional testing issuggested to confirm the result. 10/31/2024 4:14 PM EST 10/31/2024 4:14 PM EST us Generic External Data Provider LAB BLOOD ORDERAB LES Final Result Performing Organization Address [facility] Co de Phone Number [facility] [address] [place] [address] [phone] * (ABNORMAL) Lipid Panel, Standard (04/06/2024 11:37 AM EDT) Triglycerides 62 <150 mg/dL [facility] Comment:Desirable Triglyceri de: less than 150 mg/dLBorderline High Triglyceride 150-199 mg/dLHigh Triglyceride: 200-499 mg/dLVery High Triglyceride: greater than or equal to 5OO mg/dL Cholesterol 169 <200 mg/dL [facility] Comment:Desirable Cholestero l: less than 200 mg/dLBorderline High Cholesterol: 200-239 mg/dLHigh Cholesterol: greater than 239 mg/dL LDL Cholesterol Calculated 100(H) <100 mg/dL [facility] Comment:Desirable LDL: less than 100 mg/dLNear Optimal/Above Optimal LDL: 110- 129 mg/dLBorderline High LDL: 130-159 mg/dLHigh LDL: 160-189 mg/dLVery High LDL: greater than or equal to 190 mg/dL HDL Cholesterol 57 >40 mg/dL [facility] Comment:Desirable HDL: great er than 40 mg/dL Note: This HDL assay may give artificially low results in patients with liver disease. Blood Venous blood specimen / Unknown 04/06/2024 11:37 AM EDT 04/06/2024 11:37 AM EDT us Valentina Zambrano MD LAB BLOOD ORDERABLES Final Result Performing Organization Address City/[facility]/ZIP Co de Phone Number [facility] [address] [place] [phone] [phone] * BI Mammogram Diagnostic Tomosynthesis Bilateral (07/25/2023 2:53 PM EDT) Anatomical Region Laterality Modality Breast Bilateral Mammography 07/25/2023 2:53 PM EDT Narrative 07/25/2023 3:52 PM EDT ? [facility] ? [address] ?[place] [address] ? Mammography Report ? Signed ? Patient: Wang,Leela R ?MR#: [id number] ?? 9 ? : 1975 ?Acct:[id number] ? Age/Sex: 48 / F ?ADM Date: 07/25/23 ? Loc: HO.MAMMO ? Attending Dr: Kyle Aguirre MD ? Ordering Physician: Kyle Aguirre MD ?Results: 2Benign ?? Findings ? Date of Service: 07/25/23 ?Follow Up: 1 Year From Orig ?? inal Mammogram ? Procedure(s): MM tomosynthesis diagnostic BI ?? Accession Number(s): [id number] ? cc: Valentina Lopez MD; Kyle Aguirre [...] 1548 ? DD/ 1453 ? TD/TT: ? Insights Analyst: ? Procedure Note Donotuseinterpreter, Image - 07/25/2023 [facility] [address] [place] [address] Mammography Report Signed Patient: Leela Piña RMR#: [id number] 9 : 1975Acct:[id number] Age/Sex: 48 / FADM Date: 07/25/23 Loc: [place] Attending Dr: Kyle Aguirre MD Ordering Physician: Kyle Aguirre MDResults: 2Benign Findings Date of Service: 07/25/23Follow Up: 1 Year From Orig inal Mammogram Procedure(s): MM tomosynthesis diagnostic BI Accession Number(s): [id number] cc: Valentina Lopez MD; Kyle Aguirre MD [...] in OV> 07/25/23 1548 DD/ 1453 TD/TT: Insights Analyst: [facility] External Provider IMG BI PROCEDURES Final Result * Pap Smear (03/14/2023 9:32 AM EDT) 03/14/2023 9:32 AM EDT 03/16/2023 8:20 AM EDT Narrative [facility] - 04/06/2023 11:35 AM EDT ----- ------- Name: Leela Piña ?Age/Sex: 48/F ? : 1975 Unit#: [id number] ?? Attend Dr: Kyle Aguirre MD ?Re03/14/23 ?Status: DEP REF ? Location: HO.LNP ?Disch: ? ----- ------- SPEC : [id number] ? RECD: 03/16/23 ? STATUS: ??SOUT ? REQ NUM: [id number] ? TARA: 03/14/23 ? SUBM DR: Kyle Aguirre MD ? ENTERED: ??03/16/23-3259 ?SP TYPE: Pap Smr ?OTHR DR: Valentina [...] 66, 68) ?? HPV testing performed by [facility], [place], [place]. ??See reference laboratory ?? pion of the EMR for entire report. ?Clinical Information LMP:Unknown date Previous PAP test: 2021, Abnormal Other history: 11/16, HPV+ ? Material Received ?? ThinPrep-Cervical Copies To: ?? Valentina Lopez MD ?? [address] [facility] ?? [place] [address] ?? [phone] ?? Kyle Aguirre MD ?? [address] [place] [address] Dr. Reina [facility] ?? [place] [address] ?? [phone] ----- ------- Signed (signature on file) CHRISTOPHER Landers (ASCP) 04/06/23 1135 ? ----- ------- ? END OF REPORT ? [facility] External Provider LAB CYT OLOGY ORDERABLES Final Result Performing Organization Address [facility] Co de Phone Number [facility] [address] [place] [address] [phone] * HPV E6/E7 RFLX THERESA 16 18/45 (12/03/2021 3:06 PM EST) [facility] HPV mRNA E6/E7 rflx Not Detected Not Detected [facility] Comment: Methodology: Financial Aid Director-Mediated Amplification This assay detects E6/E7 viral messenger RNA (mRNA) from 14 high-risk HPV types (16,18,31,33,35,39,45,51,52,56,58,59,66,68). The analytical performance characteristics of this assay have been determined by [facility]. The modifications have not been cleared or approved by the FDA. This assay has been validated pursuant to the CLIA regulations and is used for clinical purposes. For additional information, please refer to http://education.Narvii/faq/DVD195n3 (This link if provided for information/ educational purposes only.) THIS TEST WAS PERFORMED AT: [facility] [address] [facility] [address] [place], [place] ??[phone] LOLY ARNOLD MD 12/03/2021 3:06 PM EST Kyle Aguirre MD HISTORICAL/NON ORDERABLE LABS Fi nal Result Performing Organization Address City/[facility]/ZIP Co de Phone Number [facility] [address] from Last 3 Months or Most Recently Relevant to Health Maintenance Insurance [address] [facility] * Guarantor: Leela Piña Account Type Relation to Patient Date of Phone Billing Address Personal/Family Self [address] Care Teams Dental Prosthetist Relationship Specialty Start Date End Date Valentina Lopez MD [address] [place] [address] PCP - General Family Medicine 08/03/18
--- OUTSIDE RECORDS SUMMARY | 2025-01-31 15:02 | XMS_ITS | Clinical Summary ---
Author Organization [facility] ity Address [address] [place] [phone] Care Team Providers Care Muck Farmer Name Role Phone Unavailable Primary Care Provider Unavailabl e Social History Tobacco Use Types Packs/Day Years Used Date Smoking Tobacco: Never Assessed Comments Unknown Sex and Gender Information Value Date Recorded Sex Assigned at Not on file Legal Sex Female 2:18 PM EST Gender Identity Not on file Sexual Orientation [...] 08/25/2022 Social Influencers of Health Screening 08/25/2022 Pneumococcal Vaccine: 50+ Ye ars (1 of 1 - PCV) 2023 Zoster Vaccines (1 of 2) 2023 COVID-19 Vaccine ( - 2023-2 5 season) 2024 Influenza Vaccine (Season Ended) 2025 HIB Vaccines Aged Out No longer eligi [...] patient's age to complete this topic Meningococcal B Vaccine Aged Out No l onger eligible based on patient's age to complete [...]
--- OUTSIDE RECORDS SUMMARY | 2025-01-31 15:02 | XMS_ITS | Clinical Summary ---
Author Organization [facility] Address [address] [place] [address] Care Team Providers Care Warehouse General Laborer Name Role Phone Unavailable Primary Care Provider [...] gelIndications: Caries Place in mouth once daily [place] twice daily. Expectorate after use. Do not rinse, eat or drink for 30 minutes after use. 56 g 3 0 Active Immunizations Immunization Administration Dates Next Due Moderna COVID-19 Vaccine, [...] Health Maintenance Due Date Last Done Comments Anxiety Screening 1973 Diabetes Screening 1973 HPV Screening 1973 Hepatitis C Screening 1973 Lipid Screening 1973 Pap + HPV 1973 Tobacco Screening 1973 HIV Screening 01/31/1988 Hypertension Screening (#1) 1991 Imm-DTaP/Tdap/Td (1 - Tdap) 01/31/1992 Imm-Hepatitis B (1 of 3 - 19 + 3-dose series) 01/31/1992 Cervical Cancer Screening 1994 Pap Smear 1994 Breast Cancer Screening (Mammogram) 2013 CT Colonography 2018 Colonoscopy 2018 Colorectal Cancer Screening 2018 FIT/gFOBT 2018 Fecal DNA 2018 Flexible Sigmoidoscopy 2018 Imm-Zoster, Recombinant (1 of 2) 2023 [id number] ( season) 2024 021, 02/24/2021 Imm-Influenza (#1) 2024 08/20/2020 Alcohol and Drug Screen 09/26/2024 Depression Annual Screen 09/26/2024 Cervical Ablation/Cold-Knife Conization Discontinued Cervical Cryotherapy Discontinued Colposcopy Discontinued Endometrial Biopsy Discontinued Excision/Leep Discontinued HPV Genotyping Discontinued Vaginal Pap Discontinued Vulvoscopy Discontinued Insurance [place] DENT[place] REPLACED BY [facility] [address] ACO
--- OUTSIDE RECORDS SUMMARY | 2025-01-31 15:02 | XMS_ITS | Encounter Summary ---
Author Organization [employer] Address [address] [place] [address] 7 [place] [address] Care Team Providers Care Gse Mechanic Name Role Phone Valentina Lopez MD Primary Care Provide r Encounter Details Date Type Department Care Team (Late st Contact Info) Description 06/20/2023 Orders Only [facility] [address] [place] [phone] ProviderMisael MD Social History Tobacco Use Types Packs/Day Years [...] as of this encounter Plan of Treatment Upcoming Encounters Date Type Department Care Team (Late st Contact Info) Description 02/20/2025 3:00 PM EDT Office Visit [facility]ULT [facility] [address] [place], [place] [phone] Hung Owen DDS [address] [place] [address] 03/13/2025 10:45 AM EDT Office Visit [facility] [address] [place] [address] Valentina Lopez MD [address] [place] [address] 07/24/2025 3:00 PM EDT Office Visit [facility] [address] [place] [address] Lilliana Hu [address] [place] [address] documented as of this encounter Procedures Procedure Name Priority Date/Time Associated Diagnosis Comments PAP/HPV Routine 12/03/2021 PAP/HPV Routine 11/15/2020 documented in this encounter Results * Pap Smear (12/03/2021) Historical Provider HEALTH MAINTENANCE Final Result * Pap Smear (11/15/2020) us Historical Provider HEALTH MAINTENANCE Final Result documented in this encounter Visit Diagnoses Not on filedocumented in this encounter Additional Health Concerns Assessment Noted Time PHQ-9 Depression Total Score: 3 02/29/20 23 10:36 AM EDT documented as of this encounter Care Teams Gse Mechanic Relationship Specialty Start Date End Date Valentina Lopez MD [address] [place] [phone] PCP - General Family Medicine 08/03/18 documented as of this encounter
== END 2025-01-31 14:46 | disposition home or self-care (01) ==
LOC: HO.HWS 14:10
PROVIDERS: PCP Internal Medicine; Visit Provider Obstetrics & Gynecology
DX: Z01.419 Encounter for gynecological examination (general) (routine) without abnormal findings (principal); N95.0 Postmenopausal bleeding; N76.0 Acute vaginitis; B96.89 Other specified bacterial agents as the cause of diseases classified elsewhere; R31.29 Other microscopic hematuria
CPT/HCPCS: 99213; 99396; 99459

== ENCOUNTER 2025-01-31 14:52 | Outpatient (REF) | payer OTHER, SELFPAY ==
[2025-02-01 11:23] LABS: Bacterial Vaginosis PCR POSITIVE (Negative); Candida Group PCR NOT DETECTED (Not Detect); Candida glab krusei PCR NOT DETECTED (Not Detect); Trichomonas vaginalis PCR NOT DETECTED (Not Detect)
[2025-02-01 11:56] LABS: CT PCR NOT DETECTED (Not Detect.); NG PCR NOT DETECTED (Not Detect.)
[2025-02-06 11:40] LABS: HPV Genotype 16 Negative (Negative); HPV Genotype 18 Negative (Negative); HPV High Risk Negative (Negative)
== END 2025-01-31 14:53 | disposition home or self-care (01) ==
LOC: HO.LNP 14:52
PROVIDERS: Visit Provider Obstetrics & Gynecology
DX: Z01.419 Encounter for gynecological examination (general) (routine) without abnormal findings (principal); R31.29 Other microscopic hematuria
CPT/HCPCS: 81515; 87086; 87088; 87186; 87491; 87591; 87626; 88175

== ENCOUNTER 2025-02-01 11:29 | Outpatient (REF) | payer OTHER, SELFPAY ==
--- OUTSIDE RECORDS SUMMARY | 2025-02-01 11:58 | XMS_ITS | Clinical Summary ---
Author Organization [facility] Address [address] [place] [address] Care Team Providers Care Crankshaft Straightener Name Role Phone Unavailable Primary Care Provider [...] gelIndications: Caries Place in mouth once daily Corn twice daily. Expectorate after use. Do not [...] 2018 Imm-Zoster, Recombinant (1 of 2) 2023 [id number] ( season) 2024 021, 02/24/2021 Imm-Influenza (#1) 2024 08/20/2020 Alcohol and Drug Screen 09/26/2024 Depression Annual Screen 09/26/2024 Cervical Ablation/Cold-Knife Conization Discontinued Cervical Cryotherapy Discontinued Colposcopy Discontinued Endometrial Biopsy Discontinued Excision/Leep Discontinued HPV Genotyping Discontinued Vaginal Pap Discontinued Vulvoscopy Discontinued Insurance [place] MEDICAID DENTAL [facility] [address] ACO
--- OUTSIDE RECORDS SUMMARY | 2025-02-01 11:58 | XMS_ITS | Clinical Summary ---
Author Organization [employer] Address [address] [facility] 7t [place] [address] Care Team Providers Care Team Psychologist Name Role Phone Valentina Lopez MD Primary [...] Description 01/09/2025 1:00 PM EDT Office Visit [facility] ADULT DENTAL [address] [place] [address] Mayte, Lilliana Tipped teeth (Primary Dx); Periodontal [...] Description 02/20/2025 3:00 PM EDT Office Visit [facility] ADULT DENTAL [address] [place] [address] Hung Owen DDS [address] [place] [address] 03/13/2025 10:45 AM EDT Office Visit [facility] MEDICINE [address] [place] [address] Valentina Lopez MD [address] [place] [address] 07/24/2025 3:00 PM EDT Office Visit [facility] ADULT DENTAL [address] [place] [address] Lilliana Hu [address] [place] [address] Health Maintenance Due Date Last Done Comments [...] PM EST) Hepatitis C Antibody Nonreactive Nonreactive [facility] Comment:Antibodies to HCV no t detected; does not exclude early acuteHCV infection. 10/31/2024 4:14 PM EST 10/31/2024 4:14 PM EST us Generic External Data Provider LAB BLOOD ORDERAB LES Final Result [facility] [address] [place] [phone] * HIV-1/2 Antigen and Antibodies, Fourth Generation, with Reflexes (10/31/2024 4:14 PM EST) HIV AB/AG Nonreactive Nonreactive [facility] Comment:HIV-1 p24 Ag and/or HIV-1/HIV-2 Ab not detected.A test result that is nonreactive does not exclude thepossibility of exposure to or infection with HIV-1 and/orHIV-2. Nonreactive results in this assay for individualswith prior exposure to HIV-1 and/or HIV-2 may be due toantigen and antibody levels that are below the limit ofdetection of this assay.The schoox HIV Ag/Ab Combo assay result andsupplemental assay results should be interpreted inconjunction with the patient's clinical presentation,history and other laboratory results. If the results areinconsistent with clinical evidence, additional testing issuggested to confirm the result. 10/31/2024 4:14 PM EST 10/31/2024 4:14 PM EST us Generic External Data Provider LAB BLOOD ORDERAB LES Final Result Performing Organization Address [facility] Co de Phone Number [facility] [address] [place] [phone] * (ABNORMAL) Lipid Panel, Standard (04/06/2024 11:37 AM EDT) Triglycerides 62 <150 mg/dL [facility] Comment:Desirable Triglyceri de: less than 150 mg/dLBorderline High Triglyceride 150-199 mg/dLHigh Triglyceride: 200-499 mg/dLVery High Triglyceride: greater than or equal to 5OO mg/dL Cholesterol 169 <200 mg/dL [facility] Comment:Desirable Cholestero l: less than 200 mg/dLBorderline High Cholesterol: 200-239 mg/dLHigh Cholesterol: greater than 239 mg/dL LDL Cholesterol Calculated 100(H) <100 mg/dL [facility] Comment:Desirable LDL: less than 100 mg/dLNear Optimal/Above Optimal LDL: 110- 129 mg/dLBorderline High LDL: 130-159 mg/dLHigh LDL: 160-189 mg/dLVery High LDL: greater than or equal to 190 mg/dL HDL Cholesterol 57 >40 mg/dL [facility] Comment:Desirable HDL: great er than 40 mg/dL Note: This HDL assay may give artificially low results in patients with liver disease. Blood Venous blood specimen / Unknown 04/06/2024 11:37 AM EDT 04/06/2024 11:37 AM EDT us Valentina Zambrano MD LAB BLOOD ORDERABLES Final Result Performing Organization Address City/[facility]/ZIP Co de Phone Number [facility] [address] [place] [address] [phone] * BI Mammogram Diagnostic Tomosynthesis Bilateral (07/25/2023 2:53 PM EDT) Anatomical Region Laterality Modality Breast Bilateral Mammography 07/25/2023 2:53 PM EDT Narrative 07/25/2023 3:52 PM EDT ? [facility] ? [address] ?[place] [address] ? Mammography Report ? Signed ? Patient: Wang,Leela R ?MR#: [id number] ?? 9 ? : 1975 ?Acct:[id number] ? Age/Sex: 48 / F ?ADM Date: 07/25/23 ? Loc: HO.MAMMO ? Attending Dr: Kyle Aguirre MD ? Ordering Physician: Kyle Aguirre MD ?Results: 2Benign ?? Findings ? Date of Service: 07/25/23 ?Follow Up: 1 Year From Orig ?? inal Mammogram ? Procedure(s): MM tomosynthesis diagnostic BI ?? Accession Number(s): [id number] ? cc: Valentina Lopez MD; Kyle Aguirre [...] 1548 ? DD/ 1453 ? TD/TT: ? Fruit Raiser: ? Procedure Note Donotuseinterpreter, Image - 07/25/2023 [facility] [address] [place] [address] Mammography Report Signed Patient: Leela Piña RMR#: [id number] 9 : 1975Acct:[id number] Age/Sex: 48 / FADM Date: 07/25/23 Loc: [facility] Attending Dr: Kyle Aguirre MD Ordering Physician: Kyle Aguirre MDResults: 2Benign Findings Date of Service: 07/25/23Follow Up: 1 Year From Orig inal Mammogram Procedure(s): MM tomosynthesis diagnostic BI Accession Number(s): [id number] cc: Valentina Lopez MD; Kyle Aguirre MD [...] in OV> 07/25/23 1548 DD/ 1453 TD/TT: Fruit Raiser: [facility] External Provider IMG BI PROCEDURES Final Result * Pap Smear (03/14/2023 9:32 AM EDT) 03/14/2023 9:32 AM EDT 03/16/2023 8:20 AM EDT Narrative [facility] - 04/06/2023 11:35 AM EDT ----- ------- Name: Leela Piña ?Age/Sex: 48/F ? : 1975 Unit#: [id number] ?? Attend Dr: Kyle Aguirre MD ?Re03/14/23 ?Status: DEP REF ? Location: HO.LNP ?Disch: ? ----- ------- SPEC : [id number] ? RECD: 03/16/23 ? STATUS: ??SOUT ? REQ NUM: [id number] ? TARA: 03/14/23 ? SUBM DR: Kyle Aguirre MD ? ENTERED: ??03/16/23-5319 ?SP TYPE: Pap Smr ?OTHR DR: Valentina [...] 66, 68) ?? HPV testing performed by [facility], [place], [place]. ??See reference laboratory ?? pion of the EMR for entire report. ?Clinical Information LMP:Unknown date Previous PAP test: 2021, Abnormal Other history: 11/16, HPV+ ? Material Received ?? ThinPrep-Cervical Copies To: ?? Valentina Lopez MD ?? [address] [facility] ?? [place] [address] ?? [phone] ?? Kyle Aguirre MD ?? [address] [place] [address] Dr. Reina [facility] ?? [place] [address] ?? [phone] ----- ------- Signed (signature on file) CHRISTOPHER Landers (ASCP) 04/06/23 1135 ? ----- ------- ? END OF REPORT ? [facility] External Provider LAB CYT OLOGY ORDERABLES Final Result Performing Organization Address [facility] Co de Phone Number [facility] [address] [place] [address] [phone] * HPV E6/E7 RFLX THERESA 16 18/45 (12/03/2021 3:06 PM EST) [facility] HPV mRNA E6/E7 rflx Not Detected Not Detected [employer] [facility] Comment: Methodology: Tarp Repairer-Mediated Amplification This assay detects E6/E7 viral messenger RNA (mRNA) from 14 high-risk HPV types (16,18,31,33,35,39,45,51,52,56,58,59,66,68). The analytical performance characteristics of this assay have been determined by [facility]. The modifications have not been cleared or approved by the FDA. This assay has been validated pursuant to the CLIA regulations and is used for clinical purposes. For additional information, please refer to http://education.[employer]/faq/GTM359p0 (This link if provided for information/ educational purposes only.) THIS TEST WAS PERFORMED AT: [employer] [address] [facility] [address] [place], [place] ??[phone] LOLY ARNOLD MD 12/03/2021 3:06 PM EST Kyle Aguirre MD HISTORICAL/NON ORDERABLE LABS Fi nal Result Performing Organization Address City/[facility]/ZIP Co de Phone Number [employer] [address] from Last 3 Months or Most Recently Relevant to Health Maintenance Insurance * Guarantor: Leela Piña Account Type Relation to Patient Date of Phone Billing Address Personal/Family Self [address] Care Teams Team Psychologist Relationship Specialty Start Date End Date Valentina Lopez MD [address] [place] [address] PCP - General Family Medicine 08/03/18
--- OUTSIDE RECORDS SUMMARY | 2025-02-01 11:58 | XMS_ITS | Clinical Summary ---
Author Organization [facility] ity Address [address] [place] [phone] Care Team Providers Care Retort Or Condenser Press Operator Name Role Phone Unavailable Primary Care Provider [...]
--- OUTSIDE RECORDS SUMMARY | 2025-02-01 11:58 | XMS_ITS | Encounter Summary ---
Author Organization [employer] Address [address] [place] [address] 7 [place] [address] Care Team Providers Care Epic Analyst Name Role Phone Valentina Lopez MD Primary Care Provide r Encounter Details Date Type Department Care Team (Late st Contact Info) Description 06/20/2023 Orders Only [facility] MED[facility]INE [address] [place] [id number] ProviderMisael MD Social History Tobacco Use Types [...] Description 02/20/2025 3:00 PM EDT Office Visit [facility] ADULT DENTAL [address] [place], [place] [phone] Hung Owen DDS [address] [place] [address] 03/13/2025 10:45 AM EDT Office Visit [facility] MEDIC[facility] [address] [place] [address] Valentina Lopez MD [address] [place] [address] 07/24/2025 3:00 PM EDT Office Visit [facility] ADULT DENTAL [address] [place] [address] Lilliana Hu [address] [place] [address] documented as of this encounter Procedures Procedure [...] documented as of this encounter Care Teams Epic Analyst Relationship Specialty Start Date End Date Valentina Lopez MD [address] [place] [phone] PCP - General Family Medicine 08/03/18 documented as of this encounter
[2025-02-01 13:07] LABS: Syphilis Screen Reactive (Nonreactive)
[2025-02-01 13:18] LABS: HIV AB/AG Nonreactive (Nonreactive); HIV Num 1 0.06 S/CO (0.00-0.99); ~HepC Num1 0.08 S/CO (0.00-0.79); ~Hepatitis C Antibody Nonreactive (Nonreactive)
[2025-02-01 13:38] LABS: HBsAGNum1 0.33 S/CO (0.00-0.99); Hepatitis B Surface Antigen Negative (Negative)
[2025-02-06 15:01] LABS: RPR Quantitative Reactive 1:1 (Nonreactive); T.Pallidum Particle Agg Test Reactive (Nonreactive)
== END 2025-02-01 11:30 | disposition home or self-care (01) ==
LOC: HO.LAB 11:29
PROVIDERS: PCP Internal Medicine; Visit Provider Obstetrics & Gynecology
DX: N76.0 Acute vaginitis (principal); B96.89 Other specified bacterial agents as the cause of diseases classified elsewhere
CPT/HCPCS: 36415; 86592; 86780; 86803; 87340; 87389

== ENCOUNTER 2025-02-15 14:27 | Outpatient (AMB) | payer OTHER, SELFPAY ==
--- OUTSIDE RECORDS SUMMARY | 2025-02-15 14:29 | XMS_ITS | Clinical Summary ---
Author Organization [facility] Address [address] [place] [address] Care Team Providers Care Structural Iron Erector Name Role Phone Unavailable Primary Care Provider [...] gelIndications: Caries Place in mouth once daily Thayer twice daily. Expectorate after use. Do not [...] 2018 Imm-Zoster, Recombinant (1 of 2) 2023 [id number] ( season) 2024 021, 02/24/2021 Imm-Influenza (#1) 2024 08/20/2020 Alcohol and Drug Screen 09/26/2024 Depression Annual Screen 09/26/2024 Cervical Ablation/Cold-Knife Conization Discontinued Cervical Cryotherapy Discontinued Colposcopy Discontinued Endometrial Biopsy Discontinued Excision/Leep Discontinued HPV Genotyping Discontinued Vaginal Pap Discontinued Vulvoscopy Discontinued Insurance [place] DENT[place] [facility] DENTAL [address] ACO
--- NOTE | 2025-02-15 14:47 | A.OFFVIS_ITS ---
Vital Signs 02/15/25 14:54 Height 5 ft 3 in Weight 187 lb BMI 33.1 Pulse 84 Pulse Source Pulse Oximeter Pulse Oximetry (%) 99 Oxygen Delivery Method Room Air Intake Visit Reasons: RPR results ok per [employer] Conservation Laborer Required: Yes [employer] Conservation Laborer Services: [employer] Conservation Laborer Present [employer] Conservation Laborer Name: Casandra Herzog AIR SAMPLER Allergies No Known Allergies Allergy (Verified 02/15/25 14:55) HPI HPI RPR results ok per : Details: She has no symptoms. Her titer is elevated again to 1:1 with no symptoms. 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 Surgical History Hx of dilation and curettage History of Social History Are you a primary home care consultant to a significant other at home: No Do you presently have visiting nurse or other home services: No Alcohol intake: current Alcohol intake frequency: holidays/special occasions only Patient Tobacco Use Status: Current everyday Tobacco user Cigarettes Per Day: 10 Sexual orientation: Straight/Heterosexual Gender identity: Female Female Reproductive History Menstrual Age of Menarche: 7 Review of Systems Const All systems reviewed & are unremarkable except as noted in HPI and below Physical Exam Vital Signs: Last Vital Signs Pulse 84 02/15/25 14:54 Pulse Ox 99 02/15/25 14:54 Oxygen Delivery Method Room Air 02/15/25 14:54 BMI result Body Mass Index 33.1 Const General: cooperative HEENT Head: Yes normal to inspection Face and sinus: Yes normal facial exam Mouth: Normal oral and palatal mucosa present Teeth and gingiva: dentition normal Eyes General: appearance normal, both eyes and all related structures Pupils: Equal, round and reactive pupils present Resp Effort & Inspection: normal respiratory effort Cardio Rate: regular rate Rhythm: regular rhythm GI Palpation (GI): Soft to palpation and nontender General: Yes no CVA tenderness Back/Spine/Pelvis Back: no CVA tenderness Skin General skin exam: no rashes or lesions noted Neuro General: moves all extremities Cranial nerves: Yes Equal, round and reactive pupils present Extrem General: Yes normal to inspection Psych Appearance: grossly normal Assessment & Plan Assessment & Plan (1) 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
[2025-02-15 14:54] VITALS: PULSE 84; O2SAT 99; BMI 33.1
== END 2025-02-15 15:55 | disposition home or self-care (01) ==
LOC: HO.HID 14:27
PROVIDERS: PCP Internal Medicine; Visit Provider Internal Medicine
DX: A53.9 Syphilis, unspecified (principal)
CPT/HCPCS: 99213

== ENCOUNTER → 2025-02-15 14:27 | Outpatient (BNVA) | payer OTHER, SELFPAY | PROVIDERS: PCP Internal Medicine; Visit Provider Internal Medicine | DX: A53.9 Syphilis, unspecified (principal) | CPT/HCPCS: 99212 ==

== ENCOUNTER → 2025-02-20 14:28 | Outpatient (AMB) | payer OTHER, SELFPAY ==
[2025-02-20 15:03] VITALS: BP 105/54; PULSE 100; O2SAT 99; BMI 34.0
--- NOTE | 2025-02-20 15:03 | AM.OFFVISNUR ---
Vital Signs 02/20/25 15:03 Height 5 ft 3 in Weight 87.09 kg BMI 34.0 BP 105/54 L Blood Pressure Location Rt brachial Position Sitting Pulse 100 Pulse Source Pulse Oximeter Pulse Oximetry (%) 99 Oxygen Delivery Method Room Air Intake Visit Reasons: Penicilin 1st shot Allergies No Known Allergies Allergy (Verified 02/20/25 15:03) Nursing Note Leela presented for first of two Penicillin Benzathine G injection. Patient direction and education through medical orderly Casandra Herzog. Patient educated on signs and symptoms of infection at injection site. Patient tolerated injection well and was urged to call the office with any questions or concerns. Patient verbalized understanding. Follow-up appointment made for second injection in 1 week. Office Meds penicillin G benzathine 2,400,000 unit/4 mL intramuscular syringe Performing Provider: Federica Person MD Performing Location: [facility] Administered by: Alison Elder RN on 02/20/25 14:49 Dose Route Admin Location Dispensed Lot Number Expiration Date [facility] Adzing And Boring Machine Feeder 2.4 mmu IM LGM 4 mL [id number] 01/23/27 63203-356-60 [employer] US PHARM Comments: Pt here for first of 2 injections. Pt tolerated injection well to left upper outer gluteal muscle. Pt educated on signs and symptoms of infection and urged to call the office with any questions and concerns. Pt verbalized understanding. Assessment & Plan Assessment & Plan Orders: Orders AMB Penicillin Injection Today A53.9 - Syphilis, unspecified Coding
--- OUTSIDE RECORDS SUMMARY | 2025-02-20 15:22 | XMS_ITS | Encounter Summary ---
Author Organization [employer] [facility] Address [address] [place] [address] 7 [place] [address] Care Team Providers Care In Room Dining Server Name Role Phone Valentina Lopez MD Primary Care Provide r Encounter Details Date Type Department Care Team (Late st Contact Info) Description 06/20/2023 Orders Only [facility] MEDICINE [address] [place] [phone] ProviderMisael MD Social History Tobacco Use Types [...] Care Team (Late st Contact Info) Description 03/13/2025 10:45 AM EDT Office Visit [facility] MEDICINE [address] [place] [address] [phone] Valentina Lopez MD [address] [place] [address] 07/24/2025 3:00 PM EDT Office Visit [facility] ADULT DENTAL [address] [place] [address] Lilliana Mccarthy [address] [place] [address] documented as of this encounter Procedures Procedure Name Priority Date/Time Associated Diagnosis Comments PAP/HPV Routine 12/03/2021 PAP/HPV Routine 11/15/2020 documented in this encounter Results * Hm Pap Smear (12/03/2021) us Historical Provider HEALTH MAINTENANCE Final Result * Pap Smear (11/15/2020) Historical Provider HEALTH MAINTENANCE Final Result documented in this encounter Visit Diagnoses Not on filedocumented in this encounter Additional Health Concerns Assessment Noted Time PHQ-9 Depression Total Score: 3 02/29/20 23 10:36 AM EDT documented as of this encounter Care Teams In Room Dining Server Relationship Specialty Start Date End Date Valentina Lopez MD [address] [place] [address] PCP - General Family Medicine 08/03/18 documented as of this encounter
== END ==
LOC: HO.HID 14:28
PROVIDERS: PCP Internal Medicine
DX: A53.9 Syphilis, unspecified (principal)

== ENCOUNTER → 2025-02-20 14:28 | Outpatient (BNVA) | payer OTHER, SELFPAY | PROVIDERS: PCP Internal Medicine | DX: A53.9 Syphilis, unspecified (principal) | CPT/HCPCS: 96372; J0561 ==

== ENCOUNTER → 2025-02-27 15:02 | Outpatient (BNVA) | payer OTHER, SELFPAY | PROVIDERS: PCP Internal Medicine | DX: A53.9 Syphilis, unspecified (principal) | CPT/HCPCS: 96372; J0561 ==

== ENCOUNTER → 2025-02-27 15:02 | Outpatient (AMB) | payer OTHER, SELFPAY ==
--- NOTE | 2025-02-27 15:05 | AM.OFFVISNUR ---
Intake Visit Reasons: penicillin 2nd shot Allergies No Known Allergies Allergy (Verified 02/20/25 15:03) Nursing Note Lachelle is here for second of three series Pen G injections. Leela reported no issues with injection last week and tolerated this injection well. No questions or concerns. Reminded of signs and symptoms of infection to be alert to regarding injection site. Will call office if any concerns arise. Appointment made for final injection next week. Office Meds penicillin G benzathine 2,400,000 unit/4 mL intramuscular syringe Performing Provider: Federica Person MD Performing Location: [facility] Administered by: Alison Elder RN on 02/27/25 15:14 Dose Route Admin Location Dispensed Lot Number Expiration Date [facility] Otolaryngology Teacher 2.4 mmu IM RG 4 mL [id number] 01/13/27 99076-865-67 [employer] US PHARM Comments: Pt tolerated injection well, no issues with last weeks injection. Educated on S/S of infection, urged to call the office with any questions or concerns. Pt verbalized understanding. Assessment & Plan Assessment & Plan Orders: Orders AMB Penicillin Injection Today A53.9 - Syphilis, unspecified Medications: New penicillin G benzathine 2.4 mmu (4 mL) IM ONCE 4 mL 0RF A53.9 - Syphilis, unspecified Coding
--- OUTSIDE RECORDS SUMMARY | 2025-02-27 15:10 | XMS_ITS | Clinical Summary ---
Author Organization [facility] Address [address] [place] [address] Care Team Providers Care Special Education Paraprofessional Name Role Phone Unavailable Primary Care Provider [...] gelIndications: Caries Place in mouth once daily [place] twice daily. Expectorate after use. Do not [...] 2018 Imm-Zoster, Recombinant (1 of 2) 2023 [id number] ( season) 2024 021, 02/24/2021 Imm-Influenza (#1) 2024 08/20/2020 Alcohol and Drug Screen 09/26/2024 Depression Annual Screen 09/26/2024 Cervical Ablation/Cold-Knife Conization Discontinued Cervical Cryotherapy Discontinued Colposcopy Discontinued Endometrial Biopsy Discontinued Excision/Leep Discontinued HPV Genotyping Discontinued Vaginal Pap Discontinued Vulvoscopy Discontinued Insurance [place] MEDICAID DENTAL [facility] DENTAL [address] ACO
== END ==
LOC: HO.HID 15:02
PROVIDERS: PCP Internal Medicine
DX: A53.9 Syphilis, unspecified (principal)

== ENCOUNTER → 2025-03-06 13:54 | Outpatient (AMB) | payer OTHER, SELFPAY ==
--- NOTE | 2025-03-06 14:02 | AM.OFFVISNUR ---
Intake Visit Reasons: penicillin 3rd shot Allergies No Known Allergies Allergy (Verified 02/20/25 15:03) Office Meds penicillin G benzathine 2,400,000 unit/4 mL intramuscular syringe Performing Provider: Federica Person MD Performing Location: [facility] Administered by: Alison Elder RN on 03/06/25 13:43 Dose Route Admin Location Dispensed Lot Number Expiration Date [facility] Dietist 2.4 mmu IM LG 4 mL [id number] 01/23/27 48441-768-67 [employer] US PHARM Comments: Pt denies any issue with previous injection and tolerated this injection well. Pt educated on signs and symptoms of infection and urged to call office with any questions or concerns. Pt verbalized understanding. Assessment & Plan Assessment & Plan Orders: Orders AMB Penicillin Injection Today A53.9 - Syphilis, unspecified Medications: New penicillin G benzathine 2.4 mmu (4 mL) IM ONCE 4 mL 0RF A53.9 - Syphilis, unspecified Coding
--- OUTSIDE RECORDS SUMMARY | 2025-03-06 15:50 | XMS_ITS | Clinical Summary ---
Author Organization [facility] Address [address] [place] [address] Care Team Providers Care Grocery Store Clerk Name Role Phone Unavailable Primary Care Provider [...] gelIndications: Caries Place in mouth once daily [place] twice daily. Expectorate after use. Do not [...] 2018 Imm-Zoster, Recombinant (1 of 2) 2023 [id number] ( season) 2024 021, 02/24/2021 Imm-Influenza (#1) 2024 08/20/2020 Alcohol and Drug Screen 09/26/2024 Depression Annual Screen 09/26/2024 Cervical Ablation/Cold-Knife Conization Discontinued Cervical Cryotherapy Discontinued Colposcopy Discontinued Endometrial Biopsy Discontinued Excision/Leep Discontinued HPV Genotyping Discontinued Vaginal Pap Discontinued Vulvoscopy Discontinued Insurance [place] MEDICAID DENTAL [facility] DENTAL [address] ACO
== END ==
LOC: HO.HID 13:54
PROVIDERS: PCP Internal Medicine
DX: A53.9 Syphilis, unspecified (principal)

== ENCOUNTER 2025-03-06 14:00 | Outpatient (REF) | payer OTHER, SELFPAY ==
--- NOTE | ~2025-03-06 | US_ITS ---
CLINICAL HISTORY: N95.0 - Postmenopausal bleeding US female pelvis LMP:Postmenopausal presenting with bleeding. Technique: Ultrasound examination of the pelvis was performed with transabdominal and transvaginal technique for better visualization of the endometrium. Images include: color Doppler. Comparison: None Findings: Anteverted uterus measuring 8.0 x 3.5 x 4.2cm without masses. Normal endometrial thickness of 0.4cm. The right ovary is normal in size, measuring 1.8 x 1.1 x 1.9cm, volume of 2.0mL. There is normal echogenicity and vascularity. No lesions. The left ovary is normal in size, measuring 1.7 x 1.6 x 2.5cm, volume of 3.6mL. There is normal echogenicity and vascularity. No lesions. No free fluid. Impression: No endometrial thickening. Follow up is recommended if symptoms persist. This document has been electronically signed by: Lazara Ford MD on 03/06/2025 21:15:45
== END 2025-03-06 14:01 | disposition home or self-care (01) ==
LOC: HO.US 14:00
PROVIDERS: PCP Internal Medicine; Visit Provider Obstetrics & Gynecology
DX: N95.0 Postmenopausal bleeding (principal)
CPT/HCPCS: 76830; 76856

== ENCOUNTER → 2025-03-06 14:06 | Outpatient (BNV) | payer OTHER, SELFPAY | PROVIDERS: PCP Internal Medicine; Visit Provider Radiology Diagnostic Radiology | DX: N95.0 Postmenopausal bleeding (principal) | CPT/HCPCS: 76830; 76856 ==

== ENCOUNTER 2025-03-21 11:40 | Outpatient (REF) | payer OTHER, SELFPAY ==
[2025-03-21 12:01] LABS: MANUAL DIFF FLAG NO
[2025-03-21 12:30] LABS: Basophils Absolute Auto 0.1 X10*3/uL (0.0-0.2); Basophils Percent Auto 0.8 % (0-2); Eosinophils Absolute Auto 0.2 X10*3/uL (0.0-0.4); Eosinophils Percent Auto 2.4 % (0-4); Hematocrit 38.6 % (37.0-47.0); Hemoglobin 12.7 g/dl (12.0-16.0); Imm Gran Abs Auto 0.01 X10*3/uL (0.00-0.03); Imm Gran Pct Auto 0.2 % (0.0-0.4); Lymphocytes Absolute Auto 2.5 X10*3/uL (1.2-4.9); Lymphocytes Percent Auto 39.3 % (20-40); Mean Corpuscular HGB Conc 32.9 g/dl (31.0-35.0); Mean Corpuscular Hemoglobin 29.7 pg (27.0-33.0); Mean Corpuscular Volume 90.4 fL (80.0-98.0); Mean Platelet Volume 10.9 fL (9.4-12.3); Monocytes Absolute Auto 0.4 X10*3/uL (0.1-1.2); Monocytes Percent Auto 6.7 % (2-11); Neutrophils Absolute Auto 3.2 x10*3/uL (2.0-8.3); Neutrophils Percent Auto 50.6 % (45-73); Platelet Count 256 X10*3/uL (160-400); Red Blood Count 4.27 X10*6/uL (4.20-5.50); Red Cell Distribution Width 12.9 % (11.0-16.0); White Blood Count 6.3 X10*3/uL (4.8-10.8)
[2025-03-21 12:42] LABS: Estimated Average Glucose 103 mg/dL; Hemoglobin A1c % 5.2 % (<6.0)
[2025-03-21 13:03] LABS: Alanine Aminotransferase 20 U/L (0-31); Albumin Level 4.6 g/dL (3.5-5.0); Alkaline Phosphatase 61 U/L (39-117); Anion Gap 10 (12-20); Aspartate Amino Transferase 21 U/L (5-31); Bilirubin Total 0.7 mg/dL (0.0-1.0); Blood Urea Nitrogen 9 mg/dL (9-16); Carbon Dioxide 28 mmol/L (22-29); Chloride 105 mmol/L (96-108); Cholesterol 149 mg/dL (<200); Estimated Glomerular Filt Rate > 60; Glucose Random 104 mg/dL (60-115); HDL Cholesterol 53 mg/dL (>40); LDL Cholesterol Calculated 85 mg/dL (<100); Potassium 4.2 mmol/L (3.3-5.1); Sodium 139 mmol/L (135-145); Total Protein 7.1 g/dL (6.5-8.0); Triglycerides 55 mg/dL (<150)
[2025-03-21 13:27] LABS: TSH reflex Free T4 1.17 uIU/mL (0.32-4.0); Vitamin D 25-OH Total 46.6 ng/mL (>30)
[2025-03-23 20:23] LABS: TS Negative Control Passed; TS Panel A 0; TS Panel B 0; TS Positive Control Passed; TSpotTB Negative (Negative)
== END 2025-03-21 11:41 | disposition home or self-care (01) ==
LOC: HO.LAB 11:40
PROVIDERS: PCP Internal Medicine; Visit Provider Internal Medicine
DX: Z00.00 Encounter for general adult medical examination without abnormal findings (principal); Z11.1 Encounter for screening for respiratory tuberculosis
CPT/HCPCS: 36415; 80053; 80061; 82306; 83036; 84443; 85025; 86481

== ENCOUNTER → 2025-03-27 15:15 | Outpatient (BNV) | payer OTHER, SELFPAY | PROVIDERS: PCP Internal Medicine; Visit Provider Internal Medicine | DX: Z12.31 Encounter for screening mammogram for malignant neoplasm of breast (principal) | CPT/HCPCS: 77063; 77067 ==

== ENCOUNTER 2025-03-27 15:18 | Outpatient (REF) | payer OTHER, SELFPAY ==
--- OUTSIDE RECORDS SUMMARY | 2025-03-27 15:32 | XMS_ITS | Clinical Summary ---
Author Organization [facility] Address [address] [place] [address] Care Team Providers Care Starch And Prosize Mixer Name Role Phone Unavailable Primary Care Provider [...] gelIndications: Caries Place in mouth once daily [place] twice daily. Expectorate after use. Do not [...] 2018 Imm-Zoster, Recombinant (1 of 2) 2023 [id number] ( season) 2024 021, 02/24/2021 Alcohol and Drug Screen 09/26/2024 Depression Annual Screen 09/26/2024 Imm-Influenza (Season Ended) 2025 08/20/2020 Cervical Ablation/Cold-Knife Conization Discontinued Cervical Cryotherapy Discontinued Colposcopy Discontinued Endometrial Biopsy Discontinued Excision/Leep Discontinued HPV Genotyping Discontinued Vaginal Pap Discontinued Vulvoscopy Discontinued Insurance [place] MEDICAID DENTAL [facility] DENTAL [address] ACO
--- OUTSIDE RECORDS SUMMARY | 2025-03-27 15:32 | XMS_ITS | Encounter Summary ---
Author Organization [employer] [facility] Address [address] [place] [address] [address] [place] [address] Care Team Providers Care Cyber Security Architect Name Role Phone Valentina Lopez MD Primary Care Provide r Encounter Details Date Type Department Care Team (Late st Contact Info) Description 06/20/2023 Orders Only [facility] MEDICINE [address] [place], [place] [phone] Provider, MD Misael Social History Tobacco Use Types Packs/Day Years [...] Care Team (Late st Contact Info) Description 04/16/2025 2:00 PM EDT Office Visit [facility] ADULT DENTAL [address] [place] [address] Mayte Lilliana [address] [place] [address] 04/23/2025 2:00 PM EDT Office Visit [facility] ADULT DENTAL [address] [place] [address] Mayte, Lilliana [address] [place] [address] 07/24/2025 3:00 PM EDT Office Visit [facility] ADULT DENTAL [address] [place] [address] Lilliana Hu [address] [place] [address] documented as of this encounter Procedures Procedure Name Priority Date/Time Associated Diagnosis Comments PAP/HPV Routine 12/03/2021 HM PAP/HPV Routine 11/15/2020 [...] documented as of this encounter Care Teams Cyber Security Architect Relationship Specialty Start Date End Date Valentina Lopez MD [address] [place] [address] PCP - General Family Medicine 08/03/18 documented as of this encounter
--- OUTSIDE RECORDS SUMMARY | 2025-03-27 15:32 | XMS_ITS | Clinical Summary ---
Author Organization [facility] ity Address [address] [place] [phone] Care Team Providers Care Manager Transplant Name Role Phone Unavailable Primary Care Provider [...]
== END 2025-03-27 15:19 | disposition home or self-care (01) ==
LOC: HO.MAMMO 15:18
PROVIDERS: PCP Internal Medicine; Visit Provider Obstetrics & Gynecology
DX: Z12.31 Encounter for screening mammogram for malignant neoplasm of breast (principal)
CPT/HCPCS: 77063; 77067

== ENCOUNTER 2025-04-02 15:08 | Outpatient (AMB) | payer OTHER, SELFPAY ==
--- NOTE | 2025-04-02 15:20 | MHC.OFFVIS ---
Intake Visit Reasons: EMB /urine dip Application Support Administrator: Application Support Administrator Present (Nani) Accompanied by: Self / Same As Patient Allergies No Known Allergies Allergy (Verified 04/02/25 15:21) Is last menstrual period known: No Post menopausal: Yes Patient : No HPI Comments Details: Presenting for ultrasound follow-up regarding postmenopausal bleeding and repeat urine dip for microscopic hematuria identified on previous urine dip. Urine culture was positive for E coli sensitive to nitrofurantoin, nitrofurantoin for 5 days was sent to the patient's pharmacy but the patient did not pick her up 03/20 Pelvic ultrasound showed the following: Anteverted uterus measuring 8.0 x 3.5 x 4.2cm without masses. Normal endometrial thickness of 0.4cm. The right ovary is normal in size, measuring 1.8 x 1.1 x 1.9cm, volume of 2.0mL. There is normal echogenicity and vascularity. No lesions. The left ovary is normal in size, measuring 1.7 x 1.6 x 2.5cm, volume of 3.6mL. There is normal echogenicity and vascularity. No lesions. No free fluid. 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 Surgical History Hx of dilation and curettage History of Social History Are you a primary healthcare risk control consultant to a significant other at home: No Do you presently have visiting nurse or other home services: No Alcohol intake: current Alcohol intake frequency: holidays/special occasions only Patient Tobacco Use Status: Current everyday Tobacco user Cigarettes Per Day: 10 Patient : No Sexual orientation: Straight/Heterosexual Gender identity: Female Female Reproductive History Menstrual Age of Menarche: 7 Review of Systems Const All systems reviewed & are unremarkable except as noted in HPI and below Reports as per HPI and Reports no additional complaints GI Reports no additional complaints Reports no additional complaints Assessment & Plan Assessment & Plan (1) Microscopic hematuria: Code(s): R31.29 - Other microscopic hematuria Category: Medical Plan: Repeat urine dip showed positive microscopic hematuria will repeat urine culture send prescription for nitrofurantoin 100 mg p.o. b.i.d. for 5 days. Instructions given the patient to follow up in 2 weeks for repeat urine dip (2) Postmenopausal bleeding: Comment: Endometrium 4 mm Code(s): N95.0 - Postmenopausal bleeding Category: Medical Plan: Discussed with the patient the results of the pelvic ultrasound showing an endometrial stripe thickness of 3 mm. Explained to the patient with an endometrial stripe of 4 mm &/or less, there is a high negative predictive value in detecting endometrial pathology including endometrial hyperplasia, polyps or malignancy. Therefore, there is no indication for endometrial sampling. Discussed with the patient the sensitivity, specificity, and positive and the negative predictive value of using ultrasound in detecting endometrial pathology. The patient was instructed to call if bleeding recurs, will proceed with endometrial sampling out endometrial pathology. All questions were answered and the patient verbalized understanding and agreed with the plan. Medications: New nitrofurantoin monohyd/m-cryst 100 mg (Macrobid) 100 mg PO BID 10 caps 0RF 5 days Coding Level of Care Code Est Pt Level 3 (89170) Diagnoses Microscopic hematuria R31.29 Postmenopausal bleeding N95.0
--- OUTSIDE RECORDS SUMMARY | 2025-04-02 15:48 | XMS_ITS | Clinical Summary ---
Author Organization [facility] Address [address] [place] [address] Care Team Providers Care Promotions Officer Name Role Phone Unavailable Primary Care Provider [...] gelIndications: Caries Place in mouth once daily [place] twice daily. Expectorate after use. Do not [...] 2018 Imm-Zoster, Recombinant (1 of 2) 2023 [id number] ( season) 2024 021, 02/24/2021 Alcohol and Drug Screen 09/26/2024 Depression Annual Screen 09/26/2024 Imm-Influenza (Season Ended) 2025 08/20/2020 Cervical Ablation/Cold-Knife Conization Discontinued Cervical Cryotherapy Discontinued Colposcopy Discontinued Endometrial Biopsy Discontinued Excision/Leep Discontinued HPV Genotyping Discontinued Vaginal Pap Discontinued Vulvoscopy Discontinued Insurance [place]ICA[place] DENTAL [facility] DENTAL [address] A[place]
--- OUTSIDE RECORDS SUMMARY | 2025-04-02 15:48 | XMS_ITS | Encounter Summary ---
Author Organization [employer] Address [address] [place] [address] [address] [place] [address] Care Team Providers Care Furrier Designer Name Role Phone Valentina Lopez MD Primary Care Provide r Encounter Details Date Type Department Care Team (Late st Contact Info) Description 06/20/2023 Orders Only [facility] MEDICINE [address] [place], [place] [phone] Provider, MD Misael Social History Tobacco Use [...] Description 04/16/2025 2:00 PM EDT Office Visit [facility] ADULT DENTAL [address] [place] [address] Mayte Lilliana [address] [place] [address] 04/23/2025 2:00 PM EDT Office Visit [facility] ADULT DENTAL [address] [place] [address] Mayte, Lilliana [address] [place] [address] 07/24/2025 3:00 PM EDT Office Visit [facility] ADULT DENTAL [address] [place] [address] Lilliana Hu [address] [place] [address] documented as of this encounter Procedures Procedure [...] documented as of this encounter Care Teams Furrier Designer Relationship Specialty Start Date End Date Valentina Lopez MD [address] [place] [address] PCP - General Family Medicine 08/03/18 documented as of this encounter
--- OUTSIDE RECORDS SUMMARY | 2025-04-02 15:48 | XMS_ITS | Clinical Summary ---
Author Organization [facility] ity Address [address] [place] [phone] Care Team Providers Care Bladder Tier Name Role Phone Unavailable Primary Care Provider [...] Vaccines (1 of 2) 2023 COVID-19 Vaccine (1 - 2023-2 5 season) 2024 Influenza Vaccine (#1) 2025 HIB Vaccines Aged Out No longer [...] 5 Years) and At-Risk Patients (6 to 49 Years) Aged Out No longer eligible b ased on patient's age to complete this topic RSV Immunization Patients Un yane 20 months Aged Out No longer eligible b ased on patient's age to complete this topic Varicella Vaccines Aged Out No longer eligible based on patient's age to complete this topic
== END 2025-04-02 16:00 | disposition home or self-care (01) ==
PROVIDERS: PCP Internal Medicine; Visit Provider Obstetrics & Gynecology
DX: R31.29 Other microscopic hematuria (principal)
CPT/HCPCS: 99213

== ENCOUNTER → 2025-04-02 15:08 | Outpatient (BNVA) | payer OTHER, SELFPAY | PROVIDERS: PCP Internal Medicine; Visit Provider Obstetrics & Gynecology | DX: R31.29 Other microscopic hematuria (principal); N95.0 Postmenopausal bleeding | CPT/HCPCS: 81002; 99212 ==

== ENCOUNTER 2025-05-03 11:17 | Outpatient (REF) | payer OTHER, SELFPAY ==
--- OUTSIDE RECORDS SUMMARY | 2025-05-03 11:21 | XMS_ITS | Clinical Summary ---
Author Organization [facility] Address [address] [place] [address] Care Team Providers Care Inventory Control Planner Name Role Phone Unavailable Primary Care Provider [...] gelIndications: Caries Place in mouth once daily [place] twice daily. Expectorate after use. Do not [...] 2018 Fecal DNA 2018 Flexible Sigmoidoscopy 2018 Imm-Pneumococcal 50+ (1 of 1 - PCV) 2023 Imm-Zoster, Recombinant (1 of 2) 2023 [id number] (3 season) 2024 021, 02/24/2021 Alcohol and Drug Screen 09/26/2024 Depression Annual Screen 09/26/2024 Imm-Influenza (#1) 2025 08/20/2020 Cervical Ablation/Cold-Knife Conization Discontinued Cervical Cryotherapy Discontinued Colposcopy Discontinued Endometrial Biopsy Discontinued Excision/Leep Discontinued HPV Genotyping Discontinued Vaginal Pap Discontinued Vulvoscopy Discontinued Insurance [place] MEDICAID DENTAL HEALTH SAFETY NET DENTAL [address] [place], [place] [id number] Medicaid Address: [facility] [id number] [place] [address]
--- OUTSIDE RECORDS SUMMARY | 2025-05-03 11:21 | XMS_ITS | Encounter Summary ---
Author Organization [employer] [facility] Address [address] [place] [address] [address] [place] [address] Care Team Providers Care Director Call Center Sales Name Role Phone Valentina Lopez MD Primary Care Provide r Encounter Details Date Type Department Care Team (Late st Contact Info) Description 06/20/2023 Orders Only [facility] MEDICINE [address] [place], [place] [phone] Provider, MD Misael Social History Tobacco Use [...] Care Team (Late st Contact Info) Description 07/24/2025 3:00 PM EDT Office Visit [facility] ADULT DENTAL [address] [place], [place] [phone] Mayte, Lilliana [address] [place] [address] documented as of this encounter Procedures Procedure Name Priority Date/Time Associated Diagnosis Comments HM PAP/HPV Routine 12/03/2021 HM PAP/HPV Routine 11/15/2020 documented in this encounter Results * Hm Pap Smear (12/03/2021) us Historical Provider HEALTH MAINTENANCE Final Result * Hm Pap Smear (11/15/2020) us Historical Provider HEALTH MAINTENANCE Final Result documented in this encounter Visit Diagnoses Not on filedocumented in this encounter Additional Health Concerns Assessment Noted Time PHQ-9 Depression Total Score: 3 02/29/20 23 10:36 AM EDT documented as of this encounter Care Teams Director Call Center Sales Relationship Specialty Start Date End Date Valentina Lopez MD [address] [place] [address] PCP - General Family Medicine 08/03/18 documented as of this encounter
== END 2025-05-03 11:18 | disposition home or self-care (01) ==
LOC: HO.LAB 11:17
PROVIDERS: Internal Medicine; PCP Internal Medicine; Visit Provider Obstetrics & Gynecology
DX: A53.9 Syphilis, unspecified (principal); N39.0 Urinary tract infection, site not specified
CPT/HCPCS: 36415; 86592; 87086

== ENCOUNTER 2025-05-10 14:15 | Outpatient (AMB) | payer OTHER, SELFPAY ==
--- OUTSIDE RECORDS SUMMARY | 2025-05-10 14:17 | XMS_ITS | Clinical Summary ---
Author Organization [facility] Address [address] [place] [address] Care Team Providers Care Food Assembler Kitchen Name Role Phone Unavailable Primary Care Provider [...] gelIndications: Caries Place in mouth once daily [place] twice daily. Expectorate after use. Do not [...] 2023 Imm-Zoster, Recombinant (1 of 2) 2023 [id number] (3 season) 2024 021, 02/24/2021 Alcohol and Drug Screen 09/26/2024 Depression Annual Screen 09/26/2024 Imm-Influenza (#1) 2025 08/20/2020 Cervical Ablation/Cold-Knife Conization Discontinued Cervical Cryotherapy Discontinued Colposcopy Discontinued Endometrial Biopsy Discontinued Excision/Leep Discontinued HPV Genotyping Discontinued Vaginal Pap Discontinued Vulvoscopy Discontinued Insurance [place] MED[place] DENT[place] HEALTH SAFETY NET DENTAL [address] [place], [place] [id number] Medicaid Address: [facility] [address] [place] [address]
--- OUTSIDE RECORDS SUMMARY | 2025-05-10 14:18 | XMS_ITS | Encounter Summary ---
Author Organization [facility] Address [address] [place] [address] [address] [place] [address] Care Team Providers Care Sales Order Coordinator Name Role Phone Valentina Lopez MD Primary Care Provide r Encounter Details Date Type Department Care Team (Late st Contact Info) Description 06/20/2023 Orders Only [facility] MEDICINE [address] [place], [place] [phone] Provider, MD Misael Social History Tobacco Use [...] Description 07/24/2025 3:00 PM EDT Office Visit [facility] ADULT DENTAL [address] [place], [place] [phone] Mayte, Lilliana [address] [place] [address] documented as of this encounter Procedures Procedure [...] documented as of this encounter Care Teams Sales Order Coordinator Relationship Specialty Start Date End Date Valentina Lopez MD [address] [place] [address] PCP - General Family Medicine 08/03/18 documented as of this encounter
--- OUTSIDE RECORDS SUMMARY | 2025-05-10 14:18 | XMS_ITS | Clinical Summary ---
Author Organization [facility] Address [address] [place] [address] Phone Care Team Providers Care Cow Buyer Name Role Phone Physician, No Pcp Primary Care Provider Unavaila ble Allergies No known active allergies Medications sulfamethoxazol e-trimethoprim (BACTRIM DS,SEPTRA DS) 800-160 mg per tablet Take 1 tablet by mouth 2 (two) times a day for 10 days. 20 each 04/28/2025 05/08/20 25 cephalexin (KEFLEX) 500 mg capsule Take 1 capsule (500 mg total) by mouth 4 (four) times a day for 10 days. 40 each 04/28/2025 05/08/20 25 ibuprofen (ADVIL,MOTRIN) 600 mg tablet Take 1 tablet (600 mg total) by mouth every 6 (six) hours if needed for mild pain for up to 10 days. 30 tablet 04/28/2025 05/08/20 25 Encounters Date Type Department Care Team Description 04/28/2025 4:08 PM EDT - 04/28/2025 11:14 PM EDT Emergency [facility] Emergency [address] [place] [address] Cellulitis of left lower extremity (Primary Dx) Discharge Disposition: Home or Self Care from Last 3 Months Social History Tobacco Use Types Packs/Day Years Used Date Smoking Tobacco: Every Day Cigarettes Smokeless Tobacco: Never Tobacco Cessation:Ready to Q uit: Not Asked; Counseling Given: Not Answered Alcohol Use Standard Drinks/Week Comments Not Currently 0 (1 standard drink = 0.6 oz pur e alcohol) socially Comments Unknown Sex and Gender Information Value Date Recorded Sex Assigned at Not on file Legal Sex Female 2:18 PM EST Gender Identity Not on file Sexual Orientation Not on file Obstetrics History Last Filed Vital Signs Vital Sign Reading Time Taken Comments Blood Pressure 116/67 04/28/2025 6:44 PM EDT Pulse 87 04/28/2025 6:44 PM EDT Temperature 36.9 C (98.4 F) 04/28/2025 6:44 PM EDT Respiratory Rate 16 04/28/2025 6:44 PM EDT Oxygen Saturation 98% 04/28/2025 6:44 PM EDT Inhaled Oxygen Concentration - - Weight 80.3 kg (177 lb) 04/28/2025 3:47 PM EDT Height 160 cm (5' 3 ) 04/28/2025 3:47 PM EDT Body Mass Index 31.35 04/28/2025 3:47 PM EDT Plan of Treatment Health Maintenance Due Date Last Done Comments Breast Cancer Screening 1975 Pneumococcal Vaccine: 50+ Years (1 of 2 - PCV) 01/31/1992 Colorectal Cancer Screening: Colonoscopy 08/25/2022 Hepatitis C Screening 08/25/2022 Social Influencers of Health Screening 08/25/2022 Zoster Vaccines (2 of 2) 04/25/2023 02/28/2023 COVID-19 Vaccine ( - 2023-2 5 season) 2024 09/23/2021, 03/24/2021, 02/24/2021 Depression Screening 09/26/2024 Influenza Vaccine (#1) 2025 , 08/03/2010 Cervical Cancer Screening: P ap Smear 03/14/2026 03/14/2023 Cholesterol Screening (Lipid Panel) 03/21/2030 03/21/2025 DTaP,Tdap,and Td Vaccines (3 - Td or Tdap) 02/28/2033 02/28/2023, 08/31/2010 MMR Vaccines Aged Out 07/22/2015 No longer eligi ble based on patient's age to complete this topic Hepatitis B Vaccines Completed 11/23/2016, 02/05/2016, 07/18/2015 HIV Screening Completed 02/01/2025 HIB Vaccines Aged Out No longer eligi [...] to complete this topic RSV Immunization Patients Under 20 months Aged Out No longer eligible b ased on patient's age to complete this topic Varicella Vaccines Aged Out No longer eligible based on patient's age to complete this topic Procedures Procedure Name Priority Date/Time Associated Diagnosis Comments US EXTREMITY NONVASCULAR LIMITED LEFT STAT 04/28/2025 9:09 PM EDT CULTURE WOUND WITH GRAM STAIN STAT 04/28/2025 5:35 PM EDT CULTURE BLOOD STAT 04/28/2025 4:45 PM EDT LACTATE, WITH REFLEX STAT 04/28/2025 4:34 PM EDT CBC WITH AUTO DIFFERENTIAL STAT 04/28/2025 4:26 PM EDT COMPREHENSIVE METABOLIC PANEL STAT 04/28/2025 4:26 PM EDT CBC AND DIFFERENTIAL STAT 04/28/2025 4:26 PM EDT CULTURE BLOOD STAT 04/28/2025 4:26 PM EDT from Last 3 Months Results * US Extremity Nonvascular Limited Left (04/28/2025 9:09 PM EDT) Anatomical Region Laterality Modality Extremity Left Ultrasound 04/28/2025 9:47 PM EDT Impressions 04/28/2025 9:47 PM EDT Suspect developing soft tissue abscess. Attention on follow-up. This document has been electronically signed by: Cabrera Ponce MD on 04/28/2025 21:47:14 Narrative 04/28/2025 9:47 PM EDT INDICATION: abscess US left lower extremity nonvascular Comparison: None provided Findings: Targeted images of the left upper thigh obtained. There is a heterogeneous hypoechoic region of tissue with hyperemia, measuring 2.8 x 2.5 x 2 cm, concerning for developing soft tissue abscess. Procedure Note Cabrera Pnoce MD - 04/28/2025 INDICATION: abscess US left lower extremity nonvascular Comparison: None provided Findings: Targeted images of the left upper thigh obtained. There is aheterogeneous hypoechoic region of tissue with hyperemia, measuring 2.8 x 2.5 x 2 cm, concerning for developing soft tissue abscess. IMPRESSION: Suspect developing soft tissue abscess. Attention on follow-up. This document has been electronically signed by: Cabrera Ponce MD on 04/28/2025 21:47:14 us Dinah Madden LADLE REPAIRMAN IMG US PROCEDURES Final R esult * (ABNORMAL) Culture wound with gram stain (04/28/2025 5:35 PM EDT) Culture, Wound Methicillin-Sensiti ve Staphylococcus aureus(A) JUANCARLOS 05/01/2025 10:27 AM EDT [facility] Comment: Negative for PBP2a - indicates susceptible to Oxacillin The organism value for this result has been updated. These results have been appended to the previously preliminary verified report. Edited result: Previously reported as Staphylococcus aureus on 04/29/2025 at 1123 EDT. Gram Stain Result Few Polymorphonuclear leukocytes(A) 05/01/2025 10:27 AM EDT [facility] Gram Stain Result Moderate Gram positive cocci in pairs and clusters(A) 05/01/2025 10:27 AM T [facility] Gram Stain Result No epithelial cells seen(A) 05/01/2025 10:27 AM [facility] Drainage Structure of left lower limb / Unknown 04/28/2025 5:35 PM EDT 04/28/2025 5:40 PM EDT Narrative Organism Antibiotic Method Susceptibility Methicillin-Sensitive Staphylococcus aureus Benzylpenicillin JUANCARLOS >=0.5 ug/ml: Resistant Methicillin-Sensitive Staphylococcus aureus Oxacillin JUANCARLOS 0.5 ug/ml: Susceptible Methicillin-Sensitive Staphylococcus aureus Gentamicin JUANCARLOS <=0.5 ug/ml: Susceptible Methicillin-Sensitive Staphylococcus aureus Ciprofloxacin JUANCARLOS <=0.5 ug/ml: Susceptible Methicillin-Sensitive Staphylococcus aureus Levofloxacin JUANCARLOS <=0.12 ug/ml: Susceptible Methicillin-Sensitive Staphylococcus aureus Moxifloxacin JUANCARLOS <=0.25 ug/ml: Susceptible Methicillin-Sensitive Staphylococcus aureus Erythromycin JUANCARLOS <=0.25 ug/ml: Susceptible Methicillin-Sensitive Staphylococcus aureus Clindamycin JUANCARLOS <=0.25 ug/ml: Susceptible Methicillin-Sensitive Staphylococcus aureus Quinupristin/Dalfopristin JUANCARLOS 0.5 ug/ml: Susceptible Methicillin-Sensitive Staphylococcus aureus Linezolid JUANCARLOS 2 ug/ml: Susceptible Methicillin-Sensitive Staphylococcus aureus Vancomycin JUANCARLOS 1 ug/ml: Susceptible Methicillin-Sensitive Staphylococcus aureus Tetracycline JUANCARLOS <=1 ug/ml: Susceptible Methicillin-Sensitive Staphylococcus aureus Rifampin JUANCARLOS <=0.5 ug/ml: Susceptible Methicillin-Sensitive Staphylococcus aureus Trimethoprim/Sulfamethoxazo le JUANCARLOS 160 ug/ml: Resistant Dinah Madden NP LAB MICROBIOLOGY - GENERA L ORDERABLES Final Result [facility] [address] [place] [address], [place] [phone] * Blood Culture, Peripheral #2 (04/28/2025 4:45 PM EDT) Only the most recent of2 resultswithin the time period is included. Culture, Blood No growth at 5 days 05/03/2025 5:01 PM EDT [facility] Blood Venous blood specimen / Unknown Venipuncture / Unknown 04/28/2025 4:45 PM EDT 04/28/2025 4:51 PM EDT Dinah Madden NP LAB MICROBIOLOGY - GENERA L ORDERABLES Final Result Performing Organization Address [facility]/ZIP Co de Phone Number [facility] [address] [place] [address], [place] [phone] * Lactate, with Reflex (04/28/2025 4:34 PM EDT) [facility] LACTIC ACID 0.8 0.4 - 2.0 mmol/L LAB CHEMISTRY METHOD 04/28/2025 4:58 PM EDT [facility] Blood Venous blood specimen / Unknown Venipuncture / Unknown 04/28/2025 4:34 PM EDT 04/28/2025 4:44 PM EDT us Dinah Madden LADLE REPAIRMAN LAB BLOOD ORDERABLES Christa l Result [facility] [address] [place] [address], * (ABNORMAL) CBC auto differential (04/28/2025 4:26 PM EDT) [facility] WBC 10.1 4.8 - 10.8 K/mcL LAB HEMETOLOGY METHOD 04/28/2025 4:35 PM EDT [facility] RBC 4.30 3.80 - 4.80 M/mcL LAB HEMETOLOGY METHOD 04/28/2025 4:35 PM EDT [facility] Hemoglobin 12.9 11.5 - 16.0 g/dL LAB HEMETOLOGY METHOD 04/28/2025 4:35 PM EDT [facility] Hematocrit 39.1 35.0 - 47.0 % LAB HEMETOLOGY METHOD 04/28/2025 4:35 PM EDT [facility] MCV 90.7 79.0 - 98.0 FL LAB HEMETOLOGY METHOD 04/28/2025 4:35 PM EDT [facility] MCH 29.9 27.0 - 32.0 pcg LAB HEMETOLOGY METHOD 04/28/2025 4:35 PM EDT [facility] MCHC 33.0 32.0 - 37.0 g/dL LAB HEMETOLOGY METHOD 04/28/2025 4:35 PM EDT [facility] RDW 11.9 11.0 - 15.0 % LAB HEMETOLOGY METHOD 04/28/2025 4:35 PM EDT [facility] Platelets 316 130 - 400 K/mcL LAB HEMETOLOGY METHOD 04/28/2025 4:35 PM EDT [facility] MPV 10.6 7.0 - 11.0 FL LAB HEMETOLOGY METHOD 04/28/2025 4:35 PM EDT [facility] NRBC 0.0 <1.0 % LAB HEMETOLOGY METHOD 04/28/2025 4:35 PM EDT [facility] NRBC Absolute 0.00 <0.10 K/mcL LAB HEMETOLOGY METHOD 04/28/2025 4:35 PM EDT [facility] Neutrophils Relative 74.7 % LAB HEMETOLOGY METHOD 04/28/2025 4:35 PM EDT [facility] Lymphocytes Relative 19.6 % LAB HEMETOLOGY METHOD 04/28/2025 4:35 PM EDT [facility] Monocytes Relative 3.9 % LAB [facility]EM[facility]OLOGY [facility] Eosinophils Relative 1.0 % LAB HEMETOLOGY METHOD 04/28/2025 4:35 PM EDT [facility] Basophils Relative 0.4 % LAB HEMETOLOGY METHOD 04/28/2025 4:35 PM EDT [facility] Immature Granulocytes Relative 0.4 % LAB HEMETOLOGY METHOD 04/28/2025 4:35 PM EDT [facility] Neutrophils Absolute 7.53(H) 1.50 - 7.00 K/mcL LAB HEMETOLOGY METHOD 04/28/2025 4:35 PM EDT [facility] Lymphocytes Absolute 1.98 1.00 - 5.00 K/mcL LAB HEMETOLOGY METHOD 04/28/2025 4:35 PM EDT [facility] Monocytes Absolute 0.39 0.20 - 1.00 K/mcL LAB HEMETOLOGY METHOD 04/28/2025 4:35 PM EDT [facility] Eosinophils Absolute 0.10 0.00 - 0.50 K/mcL LAB HEMETOLOGY METHOD 04/28/2025 4:35 PM EDT [facility] Basophils Absolute 0.04 0.00 - 0.20 K/mcL LAB HEMETOLOGY METHOD 04/28/2025 4:35 PM EDT [facility] Immature Granulocytes Absolute 0.04(H) 0.00 - 0.03 K/[facility] LAB HEMETOLOGY METHOD 04/28/2025 4:35 PM EDT [facility] Blood Venous blood specimen / Unknown Venipuncture / Unknown 04/28/2025 4:26 PM EDT 04/28/2025 4:31 PM EDT us Dinah Madden LADLE REPAIRMAN LAB BLOOD ORDERABLES Christa scott Result [facility] [address] [place] [address], [place] [phone] * (ABNORMAL) Comprehensive Metabolic Panel (CMP) (04/28/2025 4:26 PM EDT) Sodium 139 133 - 145 mmol/L LAB CHEMISTRY METHOD 04/28/2025 5:16 PM EDT [facility] Potassium 3.7 3.5 - 5.5 mmol/L LAB CHEMISTRY METHOD 04/28/2025 5:16 PM EDT [facility] Comment:Hemolysis present Chloride 103 96 - 110 mmol/L LAB CHEMISTRY METHOD 04/28/2025 5:16 PM EDT [facility] CO2 31 21 - 32 mmol/L LAB CHEMISTRY METHOD 04/28/2025 5:16 PM [facility] Anion Gap 5 3 - 11 LAB CHEMISTRY METHOD 04/28/2025 5:16 PM [facility] Glucose 115(H) 70 - 100 mg/dL LAB CHEMISTRY METHOD 04/28/2025 5:16 PM [facility] BUN 8 5 - 25 mg/dL LAB CHEMISTRY METHOD 04/28/2025 5:16 PM [facility] Creatinine 0.74 0.50 - 1.10 mg/dL LAB CHEMISTRY METHOD 04/28/2025 5:16 PM [facility] eGFR 97 >=60 mL/min/1. 73m2 LAB CHEMISTRY METHOD 04/28/2025 5:16 PM [facility] Comment:Calculation based on the Chronic Kidney Disease Epidemiology Collaboration (CKD-EPI) equation refit without adjustment for race. BUN/Creatinine Ratio 10.8 LAB CHEMISTRY METHOD 04/28/2025 5:16 PM [facility] Calcium 9.7 8.5 - 10.5 mg/dL LAB CHEMISTRY METHOD 04/28/2025 5:16 PM [facility] AST (SGOT) 22 10 - 42 unit/L LAB CHEMISTRY METHOD 04/28/2025 5:16 PM [facility] Comment:Hemolysis present ALT (SGPT) 30 10 - 60 unit/L LAB CHEMISTRY METHOD 04/28/2025 5:16 PM [facility] Alkaline Phosphatase 80 42 - 121 unit/L LAB CHEMISTRY METHOD 04/28/2025 5:16 PM [facility] Total Protein 7.3 6.0 - 8.0 g/dL LAB CHEMISTRY METHOD 04/28/2025 5:16 PM [facility] Albumin 3.9 3.2 - 5.0 g/dL LAB CHEMISTRY METHOD 04/28/2025 5:16 PM [facility] Total Bilirubin 0.4 0.0 - 1.4 mg/dL LAB CHEMISTRY METHOD 04/28/2025 5:16 PM EDT [facility] Blood Venous blood specimen / Unknown Venipuncture / Unknown 04/28/2025 4:26 PM EDT 04/28/2025 4:31 PM EDT us Dinah Madden LADLE REPAIRMAN LAB BLOOD ORDERABLES Christa l Result [facility] [address] [place] [address], [place] [phone] from Last 3 Months Insurance [facility] [employer] Care Teams Cow Buyer Relationship Specialty Start Date End Date Physician, No Pcp PCP - General 04/28/25
[2025-05-10 14:21] VITALS: BP 103/54; PULSE 80; BMI 30.7
--- NOTE | 2025-05-10 14:21 | MHC.OFFVIS ---
Vital Signs 05/10/25 14:21 Height 5 ft 3 in Weight 173 lb 4.533 oz BMI 30.7 BP 103/54 L Blood Pressure Location Lt brachial Position Sitting Pulse 80 Intake Visit Reasons: Colonoscopy Screening Intake Note: New patient in office today for colonoscopy screening. CC: Patient c/o constipation, gastritis, and hearburn. Clinical Dental Technician Required: No Allergies No Known Allergies Allergy (Verified 05/10/25 14:32) Medication List - Last Reconciled 05/10/25 by Malorie Bashir CNP cephalexin 500 mg PO QID multivitamin 1 tab PO DAILY nitrofurantoin monohyd/m-cryst 100 mg (Macrobid) 100 mg PO BID 5 days psyllium husk (Metamucil) 1 tsp PO DAILY semaglutide mg subcut sulfamethoxazole-trimethoprim 400-80 mg 1 tab PO BID HPI HPI Colonoscopy Screening: Details: Patient is a 50-year-old female with PMH of obesity, anxiety and depression. Referred by PCP for pre colonoscopy screening Constipation:Consistent constipation issues noted before weight loss medication (semaglutide); bowel movement frequency varies per week, with types 1 to 4 noted on the [place] Stool Chart. Compliance with fiber supplements (Metamucil). Gastroesophageal Reflux Disease (GERD):Heartburn related to spicy and citrus foods, managed with TUMS. No regurgitation or dysphagia reported. Hemorrhoids:Intermittent bright red blood on stool during hemorrhoid flares, primarily on wiping. Patient denies: fever/chills, n/v, appetite changes, unintentional wt loss or ab pain. Social hx: -social ETOH use -denies recreational drug use -Currently smokes approximately 6-7 cigarettes per day. - family hx as below -denies personal hx of CA -denies significant cardiopulmonary history -tolerated anesthesia in the past without difficulty. 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 Surgical History Hx of dilation and curettage History of Family History Maternal Grandmother Cancer Social History Are you a primary animal daycare provider to a significant other at home: No Do you presently have visiting nurse or other home services: No Alcohol intake: current Alcohol intake frequency: holidays/special occasions only Patient Tobacco Use Status: Current everyday Tobacco user Cigarettes Per Day: 10 Sexual orientation: Straight/Heterosexual Gender identity: Female Female Reproductive History Menstrual Age of Menarche: 7 Review of Systems Const Reports as per HPI ENT Reports as per HPI Card Reports as per HPI Resp Reports as per HPI GI Reports as per HPI Reports as per HPI Physical Exam Vital Signs: Last Vital Signs Pulse 80 05/10/25 14:21 BP 103/54 L 05/10/25 14:21 BMI result Body Mass Index 30.7 Const General: healthy appearing, no acute distress and well developed Nutritional Appearance: average body habitus Orientation/consciousness: patient oriented x3 HEENT Head: Yes normal to inspection, Yes normocephalic and Yes atraumatic Face and sinus: Yes normal facial exam Eyes General: appearance normal, both eyes and all related structures Neck Neck: Yes normal visual inspection Resp Effort & Inspection: normal respiratory effort, able to speak in complete sentences, no tracheal deviation and symmetric chest movement Auscultation: clear to auscultation bilaterally Cardio Jugular venous distension: no JVD Rate: regular rate Rhythm: regular rhythm Heart sounds: S1 normal heart sound present, S2 normal heart sound present, no gallops and no murmurs GI Inspection: Yes normal to inspection, No distended and Yes obesity Palpation (GI): Soft to palpation, not firm, nontender and No hepatosplenomegaly present Auscultation: normal bowel sounds and normoactive bowel sounds Neuro General: patient oriented x3 Gait exam (Neuro): Normal gait present Psych Appearance: grossly normal Mental Status: mental status grossly normal Speech and movement: Normal speech and movement present Affect: normal affect Attitude: cooperative Thought process: Normal thought process present Thought content: Normal thought content present Insight: Good insight present (Psych) Judgement: Good judgement present (Psych) Assessment & Plan Assessment & Plan (1) Colon cancer screening: Code(s): Z12.11 - Encounter for screening for malignant neoplasm of colon Category: Medical Plan: Due for index screening colonoscopy. Educated that Effective constipation management is critical to ensure adequate bowel prep and diagnostic yield for colonoscopy. Medications: -prescriptions for laxative tablets and MiraLax sent to pharmacy; instructions for Gatorade purchase and clear liquid diet given. - understands to hold Ozempic 7 days prior to procedure. Patient educated on scheduling process, procedure preparation, including avoiding certain foods and ensuring clear liquid intake Advised on necessity for ride post-procedure due to sedation. (2) Chronic constipation: Code(s): K59.09 - Other constipation Category: Medical Plan: Chronic with symptomatic hemorrhoids ( suspected source of bleeding) Medication management: -continue daily Metamucil -Introduce daily MiraLax, titrate to stool consistency Reinforced lifestyle modifications to promote regularity: -higher fiber diet, examples provided -adequate hydration with water -150 minutes of moderate intensity exercise per week (3) Acid reflux: Code(s): K21.9 - Gastro-esophageal reflux disease without esophagitis Category: Medical Qualifiers: Esophagitis presence: esophagitis presence not specified Qualified Code(s): K21.9 - Gastro-esophageal reflux disease without esophagitis Plan: Diet induced, relief with [id number]-ufnplio management -upper endoscopy alongside the colonoscopy to assess for possible GERD-related issues and esophageal/stomach inflammation Education on GERD prevention : -Advised against heavy meals; encouraged small, frequent meals instead of large ones. - Instructed to remain upright for 2?3 hours after eating. - Advised to avoid late-night meals, spicy foods, caffeine, alcohol, known dietary triggers, and tight-fitting clothing. - Emphasis placed on gradual implementation of lifestyle changes to improve adherence and symptom control. Plan Follow-up after endoscopy or sooner as needed Time: I spent a total of 30 minutes on the date of encounter which includes: Preparing to see the patient (reviewed previous documentation, test results and medical history) Performing a medically appropriate exam and/or evaluation Ordering medications, tests, and procedures Documenting clinical information in the health record Medications: New polyethylene glycol 3350 (Miralax) Take 17G (one cap full) daily with 8oz of water 17 grams PO DAILY 510 grams 2RF constipation 30 days bisacodyl (Dulcolax (bisacodyl)) Take four tablets pre colonoscopy instructions 20 mg (4 x 5 mg) PO ONCE 4 tabs 0RF 1 day polyethylene glycol 3350 (Miralax) per colonoscopy prep instructions 238 grams PO ONCE 238 grams 0RF Coding Level of Care Code New Pt New Pt Level 3 (68127) Patient Type New Diagnoses Colon cancer screening Z12.11 Chronic constipation K59.09 Gastroesophageal reflux disease, unspecified whether esophagitis present K21.9 Esophagitis presence: esophagitis presence not specified
== END 2025-05-10 15:23 | disposition home or self-care (01) ==
LOC: HO.HGI 14:16
PROVIDERS: PCP Internal Medicine; Visit Provider Nurse Practitioner Family
DX: Z01.818 Encounter for other preprocedural examination (principal); Z12.11 Encounter for screening for malignant neoplasm of colon; K59.09 Other constipation; K21.9 Gastro-esophageal reflux disease without esophagitis
CPT/HCPCS: 99203

== ENCOUNTER → 2025-05-10 14:15 | Outpatient (BNVA) | payer OTHER, SELFPAY | PROVIDERS: PCP Internal Medicine; Visit Provider Nurse Practitioner Family | DX: Z01.818 Encounter for other preprocedural examination (principal); K59.09 Other constipation; K21.9 Gastro-esophageal reflux disease without esophagitis | CPT/HCPCS: 99202 ==